=== PATIENT | female | born 1940 | race Caucasian/White ===

== ENCOUNTER 2024-09-22 09:22 | Observation (INO) ==
--- NOTE | 2024-09-22 09:41 | Emergency Department Note ---
HPI - General Adult General Chief complaint: Extremity Injury, Lower Stated complaint: INCREASED PAIN TO KNEE, cough Time Seen by Provider: 09/22/24 09:37 Source: patient, medical record and other Source information: [facility] Mode of arrival: walk-in Limitations: other Limitations comment: CONFUSED AT BASELINE History of Present Illness HPI narrative: 84-year-old female presents to ER for evaluation with complaint of bilateral knee pain and cough with increased fatigue over the last several days. Patient reports her knees have been hurting for several days and that she has had no relief with the medication she has been getting. Patient reports her cough is continuing but is nonproductive in nature. MD complaint: Bilateral knee pain, cough Onset (ago): day(s) Location: Reports left, right and lower extremity (knees) Radiation: Reports non-radiation Severity: moderate Quality: Reports aching, sharp and constant Pain Consistency: Reports constant Relieving factors: Reports immobilization and rest Exacerbating factors: Reports movement and other (Palpation) Associated symptoms: Reports cough, weakness and other (Pain) Treatments prior to arrival: Reports NSAID Related Data Previous Rx's Medication Instructions Recorded ketorolac 10 mg tablet 10 mg PO Q6H PRN pain #20 tabs 08/29/24 Allergies Allergy/AdvReac Type Severity Reaction Status Date / Time No Known Drug Allergies Allergy Verified 09/22/24 09:35 Review of Systems Status of ROS 10 or more systems reviewed and unremark able except as noted in history and below; Negative unobtainable due to endotracheal tube, Negative unobtainable due to medical condition and Negative unobtainable due to mental status Constitutional Reports: fatigue; Denies: fever, chills, change in weight, malaise, night sweats, change in sleep pattern or other Eyes Denies: change in vision, blurry vision, blind spots, light sensitivity, eye discomfort, eye discharge, dry eyes, increased production of tears, floaters, seeing flashes, decreased night vision or other Ears, nose, mouth, and throat Denies: throat pain, neck pain, throat swelling, difficulty swallowing, hoarseness, mouth pain, swelling of lips/tongue, dry mouth, bad breath, ear pain, ear discharge, change in hearing, tinnitus, vertigo, nasal discharge, nasal congestion, nose bleeds, post nasal drip or other Cardiovascular Denies: chest pain, palpitations, edema, swelling of feet/a nkles, lightheadedness, shortness of breath with exertion, shortness of breath when lying down, leg pain with exertion, bluish discoloration of hands/feet or other Respiratory Reports: cough and chest congestion; Denies: shortness of breath, wheezing, stridor, pain on inspiration, change in phlegm color, coughing up blood or other Gastrointestinal Denies: abdominal pain, nausea, vomiting, coffee grounds in vomit, heartburn, diarrhea, constipation, bloating, belching, excessive passing of gas, difficulty swallowing, feeling full early, change in bowel habits, painful bowel movements, rectal pain, rectal swelling, rectal itching, change in stool character, blood in stool, mucus in stool, white/light colored stool, fatty stool or other Genitourinary Denies: painful urination, urinary frequency, urinary urgency, urinary incontinence, blood in urine, difficulty voiding, decreased urine ouput, pelvic pain, painful menstruation, vaginal bleeding, vaginal discharge, irregular period, change in menstrual flow, absence of menstruation, genital lesion, genital itching, vaginal dryness, vaginal odor, pain during intercourse, difficulty conceiving, change in libido or other Musculoskeletal Reports: extremity pain and joint pain (Bilateral knees); Denies: back pain, neck pain, extremity swelling, limited range of motion, joint swelling, muscle cramps, muscle weakness, loss of height or other Integumentary/Breast Denies: rash, itching, redness, skin pain, skin tenderness, skin swelling, sores, new lesion, changing lesion, non-healing lesion, changes in skin color, jaundice, stretch guerrero, acne, nail changes, change in hair, breast pain, breast swelling, nipple discharge, breast mass, breast skin changes, change in breast shape or other Neurological Denies: headache, numbness in extremities, weakness in extremi ties, lack of coordination, dizziness, vertigo, confusion, behavioral changes, slurred speech, difficulty communicating thoughts, seizure-like activity, involuntary movements or other Psychiatric Reports: anxiety; Denies: mood swings, panic attacks, change in sleep pattern, hopelessness, loss of interest, irritability, paranoia, memory loss, difficulty concentrating, visual hallucinations, auditory hallucinations, tactile hallucinations, suicidal ideation, homicidal ideation or other Endocrine Reports: fatigue; Denies: excessive urination, excessive thirst, cold intolerance, excessive sweating, flushing, heat intolerance, deepening of the voice, change in body appearance, change in libido or other Hematologic/Lymphatic Denies: easy bruising, easy bleeding, enlarged lymph nodes or other Allergic/Immunologic Denies: hives, throat swelling, tongue swelling, facial swelling, wheezing, itchy eyes, seasonal allergies, food intolerance or other [facility] Medical History (Updated 09/22/24 @ 09:39 by Gin Calles RN) Abnormal weight loss Adult failure to thrive Dizziness Urinary incontinence Full incontinence of feces Dyspnea Overactive bladder Osteoarthritis Anxiety Depression Insomnia Knee pain Hx of hyperkalemia History of depression HTN (hypertension) Social History Smoking status: unknown if ever smoked Feel stressed/tense/nervous/anxious/difficulty sleeping: not at all Life stressors: other Life stressor details: n/a Due to disability, difficulty making decisions: No Exam Constitutional: normal general appearance, distress noted (moderate), average body habitus, limitations noted (physical limitations) (Dementia) and alert Vital Signs - 24 hr 09/22/24 09:32 Temperature 98.2 F Pulse Rate 98 H Respiratory Rate 24 Blood Pressure 165/69 Pulse Oximetry 97 HENMT: normocephalic, head/scalp atraumatic, hearing grossly normal bilaterall y, external ears normal, EACs normal, nasal mucous membranes normal, external nose normal, oral mucous membranes normal, oropharynx normal and gingiva normal Eyes: PERRL, EOMs intact bilaterally, conjunctivae normal, no scleral icterus, no papilledema, normal visual [place] by confrontation, alignment normal, periorbital findings normal and no nystagmus Neck/C-Spine: visual inspection normal, trachea midline, cervical spine nontender, cervical full ROM noted and supple Lymph: no lymphadenopathy noted and no lymphedema noted Chest: inspection of chest normal, palpation of chest normal, inspection of breast(s) abnormal and palpation of breast(s) abnormal Respiratory: breath sounds equal bilaterally, normal respiratory effort, clear to auscultation bilaterally, no wheezes, no rales, no retractions and no use of accessory muscles Nonproductive cough Cardiovascular: normal heart rate noted, regular rhythm noted, no gallop, no rub, no murmur, no JVD, no clicks and no additional abnormal heart sounds Gastrointestinal: abdomen normal to inspection, abdomen soft to palpation, nontender to palpation, nondistended, normoactive bowel sounds, no hepatosple nomegaly, no masses, no pulsatile mass, no ascites and normal rectal exam (deferred) Genitourinary: no CVA tenderness, bladder normal to palpation, vaginal abnormality noted (deferred), cervical abnormality noted, bimanual exam abnormal and inguinal lymphadenopathy noted Back/Pelvis: spine normal to inspection, no thoracic spine tenderness, no lumbar spine tenderness, thoracic spine ROM normal, lumbar spine ROM normal and no paraspinal muscle tenderness noted Extremities: normal to inspection, normal to palpation, tenderness noted, full ROM, joint enlargement noted and no deformity Patient has bilateral knee pain and joint edema that is chronic in nature. 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, no movement abnormality noted, no focal motor deficit noted, no sensory deficits noted, gait abnormality noted (shuffling) and (wide-based), speech normal, coordination normal, no pronator drift noted, no fasciculations noted and GCS normal Psychiatry: Mental Status Exam documented within this Exam's Psych section mental status grossly normal, orientation abnormal (Patient is oriented to her normal state.), thought process normal, cooperative, affect normal, psychomotor activity normal and memory normal Feel stressed/tense/nervous/anxious/difficulty sleeping: not at all Life stressor details: n/a Skin: skin color normal, no rash, no lesions, no ecchymosis noted, no wounds, no lacerations, skin turgor normal, no jaundice, no petechiae, no mottling, nails normal and no alopecia Course Course Hospital Course: 84-year-old female presented ER from the ED with complaint of bilateral knee pain, cough, weakness and has been evaluated by physical exam, CBC, CMP, urin alysis, plain film chest x-ray, bilateral knee x-rays, EKG, And swabs for flu and COVID results as noted in charting. Patient swabs have returned negative for flu and COVID, patient's lab work reveals patient to be hyponatremic, hypoalbuminemic, leukocytosis, urinary tract infection which has caused the patient to fail outpatient therapy, and acute on chronic kidney injury. Patient will be admitted to the [facility] to observation status for IV antibiotic therapy, electrolyte replacement, and pain control of her knee pain. The expected length of stay of patient is equal to or less than 2 midnights [facility] Vital Signs Vital signs: Vital Signs Temperature 98.2 F 09/22/24 09:32 Pulse Rate 98 H 09/22/24 09:32 Respiratory Rate 24 09/22/24 09:32 Blood Pressure 165/69 09/22/24 09:32 Pulse Oximetry 97 09/22/24 09:32 Temperature 98.2 F 09/22/24 09:32 Pulse Rate 98 H 09/22/24 09:32 Respiratory Rate 24 09/22/24 09:32 Blood Pressure 165/69 09/22/24 09:32 Pulse Oximetry 97 09/22/24 09:32 Medical Decision Making MDM Narrative Medical decision making narrative: Medical Decision Making this patient above physical exam, CBC, CMP, urinalysis, EKG, plain film chest x-ray, bilateral x-rays of the knees, urine culture, and swabs for flu and COVID. Differential Diagnosis Differential Diagnosis: Influenza, COVID, pneumonia, osteoarthritis, gout, degenerative joint disea Medical Records Medical records reviewed: Yes I reviewed the patient's medical records Lab Data Lab results reviewed: Yes I reviewed the patient's lab results Labs: Lab Results 09/22/24 09/22/24 Range/Units 10:21 10:35 WBC 11.2 H (4.3-9.3) K/uL RBC 3.1 L (4.00-5.50) M/uL Hgb 9.4 L (12.5-15.8) gm/dL Hct 28.3 L (35.9-46.7) % MCV 91.5 (81.0-93.7) fl MCH 30.4 (27.6-32.2) pg MCHC 33.3 (33.1-35.3) g/dl RDW 12.6 (11.4-14.2) % Plt Count 321 (152-353) K/uL MPV 7.2 (6.9-10.8) fl Gran % 72.5 H (47.8-71.3) % Lymph % (Auto) 15.1 L (20.0-43.0) % [place] % (Auto) 9.7 (3.6-9.8) % Eos % (Auto) 2.5 (0.4-2.8) % Baso % (Auto) 0.2 (0.1-0.85) Lymph # (Auto) 1.7 (1.1-3.1) [place] # (Auto) 1.1 (1.1-3.1) Eos # (Auto) 0.3 H (0.0-0.2) Baso # (Auto) 0.0 (0.0-0.1) Absolute Gran (auto) 8.1 H (2.3-6.0) Sodium 135 L (136-145) mmol/L Potassium 5.1 (3.6-5.2) mmol/L Chloride 100.0 (98-107) mmol/L Carbon Dioxide 30 (21-32) mmol/L Anion Gap 5.0 (4-14) mEq/L BUN 23 H (7-18) mg/dL Creatinine 1.8 H (0.6-1.3) mg/dL Estimated GFR 27.4 (>59.9) Glucose 92 (70-110) mg/dL Calcium 8.3 L (8.5-10.1) mg/dL Phosphorus 3.5 (2.5-4.9) mg/dL Magnesium 1.9 (1.8-2.4) mg/dL Total Bilirubin 0.24 (0.0-1.0) mg/dL AST 18 (15-37) U/L ALT 12 L (30-65) U/L Alkaline Phosphatase 111 (50-136) U/L Total Protein 6.3 L (6.4-8.2) g/dL Albumin 2.5 L (3.4-5.0) g/dL Urine Color Yellow (STRAW/YELL.) Urine Appearance Hazy (CLEAR) Ur Specific [place] 1.010 (1.001-1.035) Urine Protein Negative (NEGATIVE) Urine Glucose (UA) Normal (NORMAL) Urine Ketones Negative (NEGATIVE) Urine Occult Blood Negative (NEG - TRACE) Urine Nitrite Negative (NEGATIVE) Urine Bilirubin Negative (NEGATIVE) Urine Urobilinogen Normal (NORMAL) Ur Leukocyte Esterase Positive (NEGATIVE) Urine RBC Negative (0 - 5) Urine WBC 5 - 10 ( 0 - 5) Ur Epithelial Cells Rare (Few/HPF) Amorphous Sediment Moderate (Negative) Urine Bacteria Moderate (Negative) Urine Mucus Negative (Negative) Urine Trichomonas Negative (Negative) Urine Yeast Negative (Negative) Fluid pH 8.0 (5 - 9) COVID-19 (JOSE MARIA) Not detected (Not Detectd) Influenza Type A Ag Negative (Negative) Influenza Type B Ag Negative (Negative) Imaging Data Chest x-ray: Radiologist's impression: EXAM: XR CHEST 1V HISTORY: dyspneadyspnea; COMPARISON: None. FINDINGS: The trachea is midline. The cardiac silhouette is slight to moderately enlarged. The lungs are clear without focal infiltrate or effusion. The bony thorax is unremarkable. IMPRESSION: No acute cardiopulmonary disease. THIS IS AN ELECTRONICALLY VERIFIED FINAL REPORT 09/22/2024 10:51 AM - Electronically signed by Robert Garcia MD Left knee x-ray: Attestation: I have reviewed the pertinent imaging results. Radiologist's impression: EXAM: XR KNEE LT 3V HISTORY: painpain; COMPARISON: None. TECHNIQUE: Left knee x-ray series with 3 total views performed FINDINGS: The bone mineral density is generally diminished. An obliquely oriented nondispl aced fracture of the upper fibula diaphysis is observed with bony remodeling. Specifically, there is periosteal reaction and endosteal sclerosis indicating the presence of a healing subacute fracture site. The tibia and distal femur appear grossly intact. There is moderate tricompartmental osteophyte formation of the knee with significant narrowing of the patellofemoral articulation. Small loose bodies are seen within the posterior joint recess. There is no joint effusion. There is radiographic evidence of peripheral atherosclerosis. IMPRESSION: Healing, subacute fracture of the proximal fibular diaphysis. Severely diminished bone mineral density is observed. A stress fracture may be considered in the absence of recent trauma. Tricompartmental DJD of the left knee, locally advanced with respect to the patellofemoral articulation Radiographic evidence of peripheral artery disease. THIS IS AN ELECTRONICALLY VERIFIED FINAL REPORT 09/22/2024 10:50 AM - Electronically signed by Rivas Pickering MD X-ray right knee: Attestation: I have reviewed the pertinent imaging results. Radiologist's impression: EXAM: XR KNEE RT 3V HISTORY: painpain; Unavailable COMPARISON: None FINDINGS: Exam reveals marked non uniform joint space narrowing with diffuse osteophyte formation more pronounced at lateral compartment. A large suprapatellar loose body is seen. Genu valgus deformity is seen with small joint effusion. IMPRESSION: Severe osteoarthritis. THIS IS AN ELECTRONICALLY VERIFIED FINAL REPORT 09/22/2024 10:52 AM - Electronically signed by Robert Garcia MD ECG Data Attestation: I have reviewed the pertinent ECG results. Interpretation: Sinus rhythm rate 95 Normal P axis Inferior Infarct, old RR 636 OK 165 P axis 59 QRS -18 T 22 Discharge Plan Discharge Patient Disposition: Admitted As Observation Condition: Stable Chief Complaint: Extremity Injury, Lower Clinical Impression: Urinary tract infection, Hypoalbuminemia, Hyponatremia, Acute kidney injury superimposed on CKD, Knee joint pain Prescriptions: No Action ketorolac 10 mg tablet 10 mg PO Q6H PRN (Reason: pain) Qty: 20 0RF Rx Instructions: maximum total duration of 5 days from all oral, intranasal, or parenteral formulations Print Language: German Referrals: Mirtha Eng DO [Primary Care Provider] - Time of Disposition: 11:45
[2024-09-22 10:48] LABS: Basophils%(Percent) Auto 0.2 (0.1-0.85); Eosinophils#(Absolute)Auto 0.3 (0.0-0.2); Eosinophils%(Percent) Auto 2.5 % (0.4-2.8); Granulocytes % - Auto 72.5 % (47.8-71.3); Granulocytes#(Absolute)- Auto 8.1 (2.3-6.0); Hematocrit 28.3 % (35.9-46.7); Mean Corpuscular Volume 91.5 fl (81.0-93.7); Monocytes #(Absolute)- Auto 1.1 (1.1-3.1); Monocytes %(Percent)- Auto 9.7 % (3.6-9.8); Platelet Count 321 K/uL (152-353); White Blood Count 11.2 K/uL (4.3-9.3)
[2024-09-22 10:54] LABS: Potassium 5.1 mmol/L (3.6-5.2)
[2024-09-22 11:02] LABS: Urine Appearance HAZY (CLEAR); Urine Color YELLOW (STRAW/YELL.)
[2024-09-22 11:03] LABS: Urine Amorphous Sediment Moderate (Negative); Urine Blood NEGATIVE (NEG - TRACE); Urine Urobilinogen Normal (NORMAL); Urine Yeast Negative (Negative)
[2024-09-22] MEDS ORDERED: bisacodyL 10 MG SUPP.RECT PR PRN (12:03)
[2024-09-22] MEDS ORDERED: ACETAMINOPHEN 1000 MG/100 ML 1,000 MG/100 ML IV.SOLN IV PRN (13:00)
[2024-09-22] MEDS ORDERED: MAGNESIUM, ALUMINUM HYDROXIDE 30 ML ORAL.SUSP PO PRN (13:00)
[2024-09-22] MEDS ORDERED: 0.9 % SODIUM CHLORIDE 1000 ML 1,000 ML IV ONE (13:00)
[2024-09-22] MEDS ORDERED: MORPHINE SULFATE 2 MG/ML CARTRIDGE IV PRN (13:00)
[2024-09-22] MEDS ORDERED: PROMETHAZINE HCL 25 MG in 0.9 % SODIUM CHLORIDE 50 ML IV PRN (13:00)
[2024-09-22] MEDS: MEROPENEM 1 GM VIAL 1 GM in 0.9 % SODIUM CHLORIDE MB+ 50 ML IV SCH (13:01)
[2024-09-22] MEDS ORDERED: MEROPENEM 1 GM VIAL IV ONE (13:01)
[2024-09-22] MEDS ORDERED: 0.9 % SODIUM CHLORIDE MB+ 100 ML IV ONE (13:01)
[2024-09-22] MEDS: 0.9 % SODIUM CHLORIDE 1000 ML 1,000 ML IV SCH (13:01)
[2024-09-22] MEDS: ALBUMIN HUMAN 25% 100 ML IV SCH (14:22)
[2024-09-22] MEDS: ENOXAPARIN SODIUM 30 MG/0.3 ML SYRINGE SUBQ SCH (14:23)
--- NOTE | 2024-09-22 15:37 | History & Physical Report ---
H&P: HPI History of Present Illness Chief complaint: UTI, failed outpatient therapy, acute on chronic k Narrative: 84-year-old female presents to ER for evaluation with complaint of bilateral knee pain and cough with increased fatigue over the last several days. Patient reports her knees have been hurting for several days and that she has had no relief with the medication she has been getting. Patient reports her cough is continuing but is nonproductive in nature. Admitted patient to med/surg for further observation and treatment. Review of Systems Status of ROS 10 or more systems reviewed and unremark able except as noted in history and below; Negative unobtainable due to endotracheal tube, Negative unobtainable due to medical condition and Negative unobtainable due to mental status Constitutional Reports: fatigue; Denies: fever, chills, change in weight, malaise, night sweats, change in sleep pattern or other Eyes Denies: change in vision, blurry vision, blind spots, light sensitivity, eye discomfort, eye discharge, dry eyes, increased production of tears, floaters, seeing flashes, decreased night vision or other Ears, nose, mouth, and throat Denies: throat pain, neck pain, throat swelling, difficulty swallowing, hoarseness, mouth pain, swelling of lips/tongue, dry mouth, bad breath, ear pain, ear discharge, change in hearing, tinnitus, vertigo, nasal discharge, nasal congestion, nose bleeds, post nasal drip or other Cardiovascular Denies: chest pain, palpitations, edema, swelling of feet/ ankles, lightheadedness, shortness of breath with exertion, shortness of breath when lying down, leg pain with exertion, bluish discoloration of hands/feet or other Respiratory Reports: cough and chest congestion; Denies: shortness of breath, wheezing, stridor, pain on inspiration, change in phlegm color, coughing up blood or other Gastrointestinal Denies: abdominal pain, nausea, vomiting, coffee grounds in vomit, heartburn, diarrhea, constipation, bloating, belching, excessive passing of gas, difficulty swallowing, feeling full early, change in bowel habits, painful bowel movements, rectal pain, rectal swelling, rectal itching, change in stool character, blood in stool, mucus in stool, white/light colored stool, fatty stool or other Genitourinary Denies: painful urination, urinary frequency, urinary urgency, urinary incontinence, blood in urine, difficulty voiding, decreased urine ouput, pelvic pain, painful menstruation, vaginal bleeding, vaginal discharge, irregular period, change in menstrual flow, absence of menstruation, genital lesion, genital itching, vaginal dryness, vaginal odor, pain during intercourse, difficulty conceiving, change in libido or other Musculoskeletal Reports: extremity pain and joint pain (Bilateral knees); Denies: back pain, neck pain, extremity swelling, limited range of motion, joint swelling, muscle cramps, muscle weakness, loss of height or other Integumentary/Breast Denies: rash, itching, redness, skin pain, skin tenderness, skin swelling, sores, new lesion, changing lesion, non-healing lesion, changes in skin color, jaundice, stretch guerrero, acne, nail changes, change in hair, breast pain, breast swelling, nipple discharge, breast mass, breast skin changes, change in breast shape or other Neurological Denies: headache, numbness in extremities, weakness in extrem ities, lack of coordination, dizziness, vertigo, confusion, behavioral changes, slurred speech, difficulty communicating thoughts, seizure-like activity, involuntary movements or other Psychiatric Reports: anxiety; Denies: mood swings, panic attacks, change in sleep pattern, hopelessness, loss of interest, irritability, paranoia, memory loss, difficulty concentrating, visual hallucinations, auditory hallucinations, tactile hallucinations, suicidal ideation, homicidal ideation or other Endocrine Reports: fatigue; Denies: excessive urination, excessive thirst, cold intolerance, excessive sweating, flushing, heat intolerance, deepening of the voice, change in body appearance, change in libido or other Hematologic/Lymphatic Denies: easy bruising, easy bleeding, enlarged lymph nodes or other Allergic/Immunologic Denies: hives, throat swelling, tongue swelling, facial swelling, wheezing, itchy eyes, seasonal allergies, food intolerance or other [facility] Medical History (Updated 09/22/24 @ 16:12 by Mirtha Eng DO) UTI (urinary tract infection) Acute kidney injury superimposed on stage 4 chronic kidney disease Anemia Abnormal weight loss Adult failure to thrive Dizziness Urinary incontinence Full incontinence of feces Dyspnea Overactive bladder Osteoarthritis Anxiety Depression Insomnia Knee pain Hx of hyperkalemia History of depression HTN (hypertension) Social History Smoking status: unknown if ever smoked Highest level of school completed/degree received: high school Feel stressed/tense/nervous/anxious/difficulty sleeping: not at all Life stressors: other Life stressor details: n/a Due to disability, difficulty making decisions: No Gender Identity: female Meds Home Medications and Allergies Home Medications Medication Instructions Recorded Confirmed Type acetaminophen 650 mg 650 mg PO Q8H PRN pain 09/22/24 09/22/24 History tablet,extended release buspirone 5 mg tablet 5 mg PO TID 09/22/24 09/22/24 History cholecalciferol (vitamin D3) 125 125 mcg PO DAILY 09/22/24 09/22/24 History mcg (5,000 unit) tablet citalopram 20 mg tablet 20 mg PO BID 09/22/24 09/22/24 History loperamide 2 mg tablet 2 mg PO Q12H PRN loose stool 09/22/24 09/22/24 History loratadine 10 mg tablet 10 mg PO DAILY 09/22/24 09/22/24 History magnesium 200 mg tablet 200 mg PO DAILY 09/22/24 09/22/24 History meclizine 25 mg tablet 25 mg PO Q8H PRN vertigo 09/22/24 09/22/24 History olmesartan 20 mg tablet 40 mg PO BEDTIME 09/22/24 09/22/24 History sodium polystyrene sulfonate 15 30 ml PO DAILY 09/22/24 09/22/24 History gram-sorbitol 20 gram/60 mL oral susp (SPS (with sorbitol)) Allergies Allergy/AdvReac Type Severity Reaction Status Date / Time No Known Drug Allergies Allergy Verified 09/22/24 15:07 Exam Constitutional: abnormal general appearance (disheveled), (chronically ill) and (frail appearing), distress noted (moderate), average body habitus, limitations noted (physical limitations) (Dementia) and alert Vital Signs - 24 hr 09/22/24 09:32 09/22/24 12:03 09/22/24 13:30 Temperature 98.2 F 97.5 F L 98.2 F Pulse Rate 98 H 89 Pulse Rate [Left] 101 H Respiratory Rate 24 22 24 Blood Pressure 165/69 165/69 Blood Pressure [Le ft Radial Artery] 145/63 Pulse Oximetry 97 96 97 Oxygen Delivery Me thod Room Air 09/22/24 14:17 09/22/24 14:17 Temperature 97.5 F L Pulse Rate Pulse Rate [Left] 101 H 101 H Respiratory Rate 22 Blood Pressure Blood Pressure [Le ft Radial Artery] 145/63 Pulse Oximetry 96 Oxygen Delivery Me thod Room Air Room Air HENMT: normocephalic, head/scalp atraumatic, hearing grossly abnormal, external ears normal, EACs normal, TMs abnormal, nasal mucous membranes abnormal, external nose normal, oral mucous membranes normal, oropharynx normal and gingiva normal Eyes: PERRL, EOMs intact bilaterally, conjunctivae normal, no scleral icterus, no papilledema, normal visual [place] by confrontation, alignment normal, periorbital findings normal and no nystagmus Neck/C-Spine: trachea midline, cervical spine nontender, abnormal cervical ROM noted, supple, no meningeal signs, thyroid normal and no carotid bruits Lymph: no lymphadenopathy noted and no lymphedema noted Chest: inspection of chest normal and palpation of chest normal Respiratory: breath sounds equal bilaterally, normal respiratory effort, clear to auscultation bilaterally, no wheezes, no rales, no retractions and no use of accessory muscles Nonproductive cough Cardiovascular: heart rate abnormal (tachycardic), regular rhythm noted, no gallop, no rub, no murmur, no JVD, no clicks, peripheral pulses as noted:, no bruits noted and no additional abnormal heart sounds Gastrointestinal: abdomen normal to inspection, abdomen soft to palpation, nontender to palpation, nondistended, normoactive bowel sounds, hepatosplenomegaly noted, no masses, no pulsatile mass, no ascites and normal rectal exam (deferred) Genitourinary: no CVA tenderness and bladder normal to palpation Back/Pelvis: no thoracic spine tenderness, no lumbar spine tenderness, thoracic spine ROM abnormal, lumbar spine ROM abnormal, no paraspinal muscle tenderness noted and straight leg raise abnormal Extremities: normal to inspection, normal to palpation, tenderness noted, abnormal ROM noted, joint enlargement noted and no deformity Patient has bilateral knee pain and joint edema that is chronic in nature. 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, no movement abnormality noted, no focal motor deficit noted, sensory deficit noted, gait abnormality noted (shuffling) and (wide-based), speech abnormality noted, coordination normal, no pronator drift noted, no fasciculations noted and GCS normal Psychiatry: Mental Status Exam documented within this Exam's Psych section mental status grossly normal, orientation abnormal (Patient is oriented to her normal state.), thought process abnormality noted, cooperative, affect abnormality noted (depressed), psychomotor activity normal and memory abnormal Skin: skin color abnormal Reports (pale), no rash, no lesions, no ecchymosis noted, no wounds, no lacerations, skin turgor abnormal Reports (tenting), no jaundice, no petechiae, no mottling, nails abnormality noted and no alopecia Assessment and Plan Assessment and Plan (1) UTI (urinary tract infection): Qualifiers: Urinary tract infection type: site unspecified Hematuria presence: without hematuria Qualified Code(s): N39.0 - Urinary tract infection, site not specified Code(s): N39.0 - Urinary tract infection, site not specified (2) Hyponatremia: Code(s): E87.1 - Hypo-osmolality and hyponatremia (3) Acute kidney injury superimposed on stage 4 chronic kidney disease: Code(s): N17.9 - Acute kidney failure, unspecified; N18.4 - Chronic kidney disease, stage 4 (severe) (4) Knee pain: Qualifiers: Chronicity: acute Laterality: bilateral Qualified Code(s): M25.561 - Pain in right knee; M25.562 - Pain in left knee Code(s): M25.569 - Pain in unspecified knee (5) Dyspnea: Qualifiers: Dyspnea type: unspecified Qualified Code(s): R06.00 - Dyspnea, unspecified Code(s): R06.00 - Dyspnea, unspecified (6) Dizziness: Code(s): R42 - Dizziness and giddiness (7) Contusion, hip: Qualifiers: Encounter type: initial encounter Laterality: unspecified laterality Qualified Code(s): S70.00XA - Contusion of unspecified hip, initial encounter Code(s): S70.00XA - Contusion of unspecified hip, initial encounter (8) Urinary incontinence: Qualifiers: Urinary Incontinence type: unspecified incontinence Qualified Code(s): R32 - Unspecified urinary incontinence Code(s): R32 - Unspecified urinary incontinence (9) Full incontinence of feces: Code(s): R15.9 - Full incontinence of feces (10) Overactive bladder: Code(s): N32.81 - Overactive bladder (11) Osteoarthritis: Qualifiers: Osteoarthritis location: unspecified site Osteoarthritis type: unspecified Qualified Code(s): M19.90 - Unspecified osteoarthritis, unspecified site Code(s): M19.90 - Unspecified osteoarthritis, unspecified site (12) Anxiety: Code(s): F41.9 - Anxiety disorder, unspecified (13) Insomnia: Qualifiers: Insomnia type: unspecified Qualified Code(s): G47.00 - Insomnia, unspecified Code(s): G47.00 - Insomnia, unspecified (14) HTN (hypertension): Qualifiers: Hypertension type: primary hypertension Qualified Code(s): I10 - Essential (primary) hypertension Code(s): I10 - Essential (primary) hypertension (15) Hx of hyperkalemia: Code(s): Z86.39 - Personal history of other endocrine, nutritional and metabolic disease (16) History of depression: Code(s): Z86.59 - Personal history of other mental and behavioral disorders (17) Anemia: Qualifiers: Anemia type: due to chronic kidney disease Chronic kidney disease stage: stage 4 (GFR 15-29) Qualified Code(s): N18.4 - Chronic kidney disease, stage 4 (severe); D63.1 - Anemia in chronic kidney disease Code(s): D64.9 - Anemia, unspecified (18) Dehydration: Code(s): E86.0 - Dehydration (19) Depression: Qualifiers: Depression Type: other depression Qualified Code(s): F32.89 - Other specified depressive episodes Code(s): F32.A - Depression, unspecified (20) Failure of outpatient treatment: Code(s): Z78.9 - Other specified health status (21) Sinus tachycardia: Code(s): R00.0 - Tachycardia, unspecified Plan Sodium Chloride 1,000 mls @ 75 mls/hr IV CONT cardiac monitoring PT/OT consult Albumin 100 mls @ 60 mls/hr IV Q2H Enoxaparin Sodium 30 mg SUBQ Q24H Meropenem 1 gm in Sodium Chloride 50 mls @ 100 mls/hr IV Q12H Magnesium Hydroxide 30 ml PO DAILY PRN Bisacodyl [address] DAILY PRN Morphine Sulfate 2 mg IV Q4H PRN Ketorolac Tromethamine 15 mg IVP Q6H PRN Ondansetron Hcl 4 mg INJ Q6H PRN Promethazine Hcl 25 mg in Sodium Chloride 51 mls @ 200 mls/hr IV Q8H PRN acetaminophen 1,000 mg in 100 mls @ 400 mls/hr IV Q6H PRN have a pharamcy review of recent antibiotics and cultures to help ensure best antibiotic regimen Results Labs Labs: CBC WBC 11.2 K/uL (4.3-9.3) H 09/22/24 10:35 RBC 3.1 M/uL (4.00-5.50) L 09/22/24 10:35 Hgb 9.4 gm/dL (12.5-15.8) L 09/22/24 10:35 Hct 28.3 % (35.9-46.7) L 09/22/24 10:35 MCV 91.5 fl (81.0-93.7) 09/22/24 10:35 MCH 30.4 pg (27.6-32.2) 09/22/24 10:35 MCHC 33.3 g/dl (33.1-35.3) 09/22/24 10:35 RDW 12.6 % (11.4-14.2) 09/22/24 10:35 Plt Count 321 K/uL (152-353) 09/22/24 10:35 MPV 7.2 fl (6.9-10.8) 09/22/24 10:35 Gran % 72.5 % (47.8-71.3) H 09/22/24 10:35 Lymph % (Auto) 15.1 % (20.0-43.0) L 09/22/24 10:35 [place] % (Auto) 9.7 % (3.6-9.8) 09/22/24 10:35 Eos % (Auto) 2.5 % (0.4-2.8) 09/22/24 10:35 Baso % (Auto) 0.2 (0.1-0.85) 09/22/24 10:35 Lymph # (Auto) 1.7 (1.1-3.1) 09/22/24 10:35 [place] # (Auto) 1.1 (1.1-3.1) 09/22/24 10:35 Eos # (Auto) 0.3 (0.0-0.2) H 09/22/24 10:35 Baso # (Auto) 0.0 (0.0-0.1) 09/22/24 10:35 Absolute Gran (auto) 8.1 (2.3-6.0) H 09/22/24 10:35 BMP Sodium 135 mmol/L (136-145) L 09/22/24 10:35 Potassium 5.1 mmol/L (3.6-5.2) 09/22/24 10:35 Chloride 100.0 mmol/L (98-107) 09/22/24 10:35 Carbon Dioxide 30 mmol/L (21-32) 09/22/24 10:35 Anion Gap 5.0 mEq/L (4-14) 09/22/24 10:35 BUN 23 mg/dL (7-18) H 09/22/24 10:35 Creatinine 1.8 mg/dL (0.6-1.3) H 09/22/24 10:35 Estimated GFR 27.4 (>59.9) 09/22/24 10:35 Glucose 92 mg/dL (70-110) 09/22/24 10:35 Calcium 8.3 mg/dL (8.5-10.1) L 09/22/24 10:35 Phosphorus 3.5 mg/dL (2.5-4.9) 09/22/24 10:35 Magnesium 1.9 mg/dL (1.8-2.4) 09/22/24 10:35 Total Bilirubin 0.24 mg/dL (0.0-1.0) 09/22/24 10:35 AST 18 U/L (15-37) 09/22/24 10:35 ALT 12 U/L (30-65) L 09/22/24 10:35 Alkaline Phosphatase 111 U/L (50-136) 09/22/24 10:35 Total Protein 6.3 g/dL (6.4-8.2) L 09/22/24 10:35 Albumin 2.5 g/dL (3.4-5.0) L 09/22/24 10:35 Liver Function Total Bilirubin 0.24 mg/dL (0.0-1.0) 09/22/24 10:35 AST 18 U/L (15-37) 09/22/24 10:35 ALT 12 U/L (30-65) L 09/22/24 10:35 Alkaline Phosphatase 111 U/L (50-136) 09/22/24 10:35 Total Protein 6.3 g/dL (6.4-8.2) L 09/22/24 10:35 Albumin 2.5 g/dL (3.4-5.0) L 09/22/24 10:35 Urine Urine Color Yellow (STRAW/YELL.) 09/22/24 10:35 Urine Appearance Hazy (CLEAR) 09/22/24 10:35 Ur Specific [place] 1.010 (1.001-1.035) 09/22/24 10:35 Urine Protein Negative (NEGATIVE) 09/22/24 10:35 Urine Glucose (UA) Normal (NORMAL) 09/22/24 10:35 Urine Ketones Negative (NEGATIVE) 09/22/24 10:35 Urine Occult Blood Negative (NEG - TRACE) 09/22/24 10:35 Urine Nitrite Negative (NEGATIVE) 09/22/24 10:35 Urine Bilirubin Negative (NEGATIVE) 09/22/24 10:35 Urine Urobilinogen Normal (NORMAL) 09/22/24 10:35 Ur Leukocyte Esterase Positive (NEGATIVE) 09/22/24 10:35 Imaging Imaging ordered: Chest x-ray and other (Knee X-Ray; Knee X-Ray) Radiologist's impression: XR CHEST 1V Date of Service: 09/22/24 HISTORY: dyspnea; COMPARISON: None. FINDINGS: The trachea is midline. The cardiac silhouette is slight to moderately enlarged. The lungs are clear without focal infiltrate or effusion. The bony thorax is unremarkable. IMPRESSION: No acute cardiopulmonary disease. XR KNEE RT 3V Date of Service: 09/22/24 HISTORY: pain; Unavailable COMPARISON: None FINDINGS: Exam reveals marked non uniform joint space narrowing with diffuse osteophyte formation more pronounced at lateral compartment. A large suprapatellar loose body is seen. Genu valgus deformity is seen with small joint effusion. IMPRESSION: Severe osteoarthritis. XR KNEE LT 3V Date of Service: 09/22/24 HISTORY: pain; COMPARISON: None. TECHNIQUE: Left knee x-ray series with 3 total views performed FINDINGS: The bone mineral density is generally diminished. An obliquely oriented nondisplaced fracture of the upper fibula diaphysis is observed with bony remodeling. Specifically, there is periosteal reaction and endosteal sclerosis indicating the presence of a healing subacute fracture site. The tibia and distal femur appear grossly intact. There is moderate tricompart mental osteophyte formation of the knee with significant narrowing of the patellofemoral articulation. Small loose bodies are seen within the posterior joint recess. There is no joint effusion. There is radiographic evidence of peripheral atherosclerosis. IMPRESSION: Healing, subacute fracture of the proximal fibular diaphysis. Severely diminished bone mineral density is observed. A stress fracture may be considered in the absence of recent trauma. Tricompartmental DJD of the left knee, locally advanced with respect to the patellofemoral articulation Radiographic evidence of peripheral artery disease.
[2024-09-22] MEDS: PANTOPRAZOLE SODIUM 40 MG TABLET.DR PO SCH (16:43)
[2024-09-22] MEDS: L. ACIDOPHILUS/L.BULGARICU 1 GM GRAN.PACK PO SCH (16:43)
[2024-09-22] MEDS ORDERED: ACETAMINOPHEN 325 MG TABLET PO PRN (17:00)
[2024-09-22] MEDS ORDERED: MECLIZINE HCL 25 MG TABLET PO PRN (17:00)
[2024-09-22] MEDS: BUSPIRONE HCL 5 MG TABLET PO SCH (21:39)
[2024-09-22] MEDS: CITALOPRAM HYDROBROMIDE 20 MG TABLET PO SCH (21:39)
[2024-09-23] MEDS: ONDANSETRON HCL/PF 4 MG/2 ML VIAL INJ PRN (01:35)
[2024-09-23 05:23] LABS: Basophils%(Percent) Auto 0.3 (0.1-0.85); Eosinophils#(Absolute)Auto 0.4 (0.0-0.2); Eosinophils%(Percent) Auto 3.9 % (0.4-2.8); Granulocytes % - Auto 67.6 % (47.8-71.3); Granulocytes#(Absolute)- Auto 6.4 (2.3-6.0); Hematocrit 26.2 % (35.9-46.7); Mean Corpuscular Volume 91.4 fl (81.0-93.7); Monocytes #(Absolute)- Auto 0.8 (1.1-3.1); Monocytes %(Percent)- Auto 8.9 % (3.6-9.8); Platelet Count 321 K/uL (152-353); White Blood Count 9.5 K/uL (4.3-9.3)
[2024-09-23] MEDS: LORATADINE 10 MG TABLET PO SCH (08:18)
[2024-09-23] MEDS: SODIUM POLYSTYRENE SULFONATE 15 GM/60 ML ORAL.SUSP PO SCH (13:08)
--- NOTE | 2024-09-23 15:05 | Progress Note ---
Progress Note: Subjective Subjective Interval history: Day two of hospital stay, patient alert and oriented today. Morning daily lab work reflects the following: Anemia with a Hgb of 8.8, elevated BUN of 19, elevated Creatinine of 1.6, low ALT of 12, elevated BNP of 233, and hypoalbuminemia of 3.1. Electrolytes will continue to be replenished and patient will continue to be monitored at this time. Exam Constitutional: abnormal general appearance (disheveled), (chronically ill) and (frail appearing), distress noted (moderate), average body habitus, limitations noted (physical limitations) (Dementia) and alert Vital Signs - 24 hr 09/22/24 20:00 09/22/24 23:53 09/23/24 03:29 Temperature 99.1 F 99.1 F 99.3 F Pulse Rate [Left] 108 H 109 H 108 H Respiratory Rate 17 16 19 Blood Pressure [Le ft Radial Artery] 145/55 134/59 132/53 Pulse Oximetry 96 95 93 L Oxygen Delivery Me thod Room Air Room Air Room Air 09/23/24 08:00 09/23/24 12:00 Temperature 97.7 F 98.3 F Pulse Rate [Left] 113 H 103 H Respiratory Rate 19 19 Blood Pressure [Le ft Radial Artery] 151/61 138/55 Pulse Oximetry 93 L 95 Oxygen Delivery Vt thod Room Air Room Air HENMT: normocephalic, head/scalp atraumatic, hearing grossly abnormal, external ears normal, EACs normal, TMs abnormal, nasal mucous membranes abnormal, external nose normal, oral mucous membranes normal, oropharynx normal and gingiva normal Eyes: PERRL, EOMs intact bilaterally, conjunctivae normal, no scleral icterus, no papilledema, normal visual [place] by confrontation, alignment normal, periorbital findings normal and no nystagmus Neck/C-Spine: visual inspection normal, trachea midline, cervical spine nontender, abnormal cervical ROM noted, supple, no meningeal signs, thyroid normal and no carotid bruits Lymph: no lymphadenopathy noted and no lymphedema noted Chest: inspection of chest normal, palpation of chest normal, inspection of breast(s) abnormal and palpation of breast(s) abnormal Respiratory: breath sounds equal bilaterally, normal respiratory effort, clear to auscultation bilaterally, no wheezes, no rales, no retractions and no use of accessory muscles Nonproductive cough Cardiovascular: heart rate abnormal (tachycardic), regular rhythm noted, no gallop, no rub, no murmur, no JVD, no clicks, peripheral pulses as noted:, no bruits noted and no additional abnormal heart sounds Gastrointestinal: abdomen normal to inspection, abdomen soft to palpation, nontender to palpation, nondistended, normoactive bowel sounds, hepatosplenomegaly noted, no masses, no pulsatile mass, no ascites and normal rectal exam (deferred) Genitourinary: no CVA tenderness, bladder normal to palpation, vaginal abnormality noted (deferred), cervical abnormality noted, bimanual exam abnormal and inguinal lymphadenopathy noted Back/Pelvis: spine normal to inspection, no thoracic spine tenderness, no lumbar spine tenderness, thoracic spine ROM abnormal, lumbar spine ROM abnormal, no paraspinal muscle tenderness noted and straight leg raise abnormal Extremities: normal to inspection, normal to palpation, tenderness noted, abnormal ROM noted, joint enlargement noted and no deformity Patient has bilateral knee pain and joint edema that is chronic in nature. 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, no movement abnormality noted, no focal motor deficit noted, sensory deficit noted, gait abnormality noted (shuffling) and (wide-based), speech abnormality noted, coordination normal, no pronator drift noted, no fasciculations noted and GCS normal Psychiatry: Mental Status Exam documented within this Exam's Psych section mental status grossly normal, orientation abnormal (Patient is oriented to her normal state.), thought process abnormality noted, cooperative, affect abnormality noted (depressed), psychomotor activity normal and memory abnormal Skin: skin color abnormal Reports (pale), no rash, no lesions, no ecchymosis noted, no wounds, no lacerations, skin turgor abnormal Reports (tenting), no jaundice, no petechiae, no mottling, nails abnormality noted and no alopecia Progress Note: Objective Labs Labs: CBC 09/22/24 09/22/24 09/23/24 10:21 10:35 05:25 WBC 11.2 H 9.5 H RBC 3.1 L 2.9 L Hgb 9.4 L 8.8 L Hct 28.3 L 26.2 L MCV 91.5 91.4 MCH 30.4 30.6 MCHC 33.3 33.5 RDW 12.6 12.5 Plt Count 321 321 MPV 7.2 7.0 Gran % 72.5 H 67.6 Lymph % (Auto) 15.1 L 19.3 L [place] % (Auto) 9.7 8.9 Eos % (Auto) 2.5 3.9 H Baso % (Auto) 0.2 0.3 Lymph # (Auto) 1.7 1.8 [place] # (Auto) 1.1 0.8 L Eos # (Auto) 0.3 H 0.4 H Baso # (Auto) 0.0 0.0 Absolute Gran (auto) 8.1 H 6.4 H Sodium 135 L 137 Potassium 5.1 5.0 Chloride 100.0 104.0 Carbon Dioxide 30 26 Anion Gap 5.0 7.0 BUN 23 H 19 H Creatinine 1.8 H 1.6 H Estimated GFR 27.4 31.6 Glucose 92 82 Calcium 8.3 L 8.6 Phosphorus 3.5 3.6 Magnesium 1.9 2.0 Total Bilirubin 0.24 0.29 AST 18 15 ALT 12 L 12 L Alkaline Phosphatase 111 95 B-Natriuretic Peptide 233.0 H Total Protein 6.3 L 6.4 Albumin 2.5 L 3.1 L TSH 1.21 Urine Color Yellow Urine Appearance Hazy Ur Specific [place] 1.010 Urine Protein Negative Urine Glucose (UA) Normal Urine Ketones Negative Urine Occult Blood Negative Urine Nitrite Negative Urine Bilirubin Negative Urine Urobilinogen Normal Ur Leukocyte Esterase Positive Urine RBC Negative Urine WBC 5 - 10 Ur Epithelial Cells Rare Amorphous Sediment Moderate Urine Bacteria Moderate Urine Mucus Negative Urine Trichomonas Negative Urine Yeast Negative Fluid pH 8.0 COVID-19 (JOSE MARIA) Not detected Influenza Type A Ag Negative Influenza Type B Ag Negative [facility] 09/23/24 05:25 WBC 9.5 H RBC 2.9 L Hgb 8.8 L Hct 26.2 L MCV 91.4 MCH 30.6 MCHC 33.5 RDW 12.5 Plt Count 321 MPV 7.0 Gran % 67.6 Lymph % (Auto) 19.3 L [place] % (Auto) 8.9 Eos % (Auto) 3.9 H Baso % (Auto) 0.3 Lymph # (Auto) 1.8 [place] # (Auto) 0.8 L Eos # (Auto) 0.4 H Baso # (Auto) 0.0 Absolute Gran (auto) 6.4 H Sodium 137 Potassium 5.0 Chloride 104.0 Carbon Dioxide 26 Anion Gap 7.0 BUN 19 H Creatinine 1.6 H Estimated GFR 31.6 Glucose 82 Calcium 8.6 Phosphorus 3.6 Magnesium 2.0 Total Bilirubin 0.29 AST 15 ALT 12 L Alkaline Phosphatase 95 B-Natriuretic Peptide 233.0 H Total Protein 6.4 Albumin 3.1 L TSH 1.21 Cardiac Enzymes 09/23/24 05:25 WBC 9.5 H RBC 2.9 L Hgb 8.8 L Hct 26.2 L MCV 91.4 MCH 30.6 MCHC 33.5 RDW 12.5 Plt Count 321 MPV 7.0 Gran % 67.6 Lymph % (Auto) 19.3 L [place] % (Auto) 8.9 Eos % (Auto) 3.9 H Baso % (Auto) 0.3 Lymph # (Auto) 1.8 [place] # (Auto) 0.8 L Eos # (Auto) 0.4 H Baso # (Auto) 0.0 Absolute Gran (auto) 6.4 H Sodium 137 Potassium 5.0 Chloride 104.0 Carbon Dioxide 26 Anion Gap 7.0 BUN 19 H Creatinine 1.6 H Estimated GFR 31.6 Glucose 82 Calcium 8.6 Phosphorus 3.6 Magnesium 2.0 Total Bilirubin 0.29 AST 15 ALT 12 L Alkaline Phosphatase 95 B-Natriuretic Peptide 233.0 H Total Protein 6.4 Albumin 3.1 L TSH 1.21 Liver Function 09/23/24 05:25 WBC 9.5 H RBC 2.9 L Hgb 8.8 L Hct 26.2 L MCV 91.4 MCH 30.6 MCHC 33.5 RDW 12.5 Plt Count 321 MPV 7.0 Gran % 67.6 Lymph % (Auto) 19.3 L [place] % (Auto) 8.9 Eos % (Auto) 3.9 H Baso % (Auto) 0.3 Lymph # (Auto) 1.8 [place] # (Auto) 0.8 L Eos # (Auto) 0.4 H Baso # (Auto) 0.0 Absolute Gran (auto) 6.4 H Sodium 137 Potassium 5.0 Chloride 104.0 Carbon Dioxide 26 Anion Gap 7.0 BUN 19 H Creatinine 1.6 H Estimated GFR 31.6 Glucose 82 Calcium 8.6 Phosphorus 3.6 Magnesium 2.0 Total Bilirubin 0.29 AST 15 ALT 12 L Alkaline Phosphatase 95 B-Natriuretic Peptide 233.0 H Total Protein 6.4 Albumin 3.1 L TSH 1.21 Urine 09/22/24 09/22/24 09/23/24 10:21 10:35 05:25 WBC 11.2 H 9.5 H RBC 3.1 L 2.9 L Hgb 9.4 L 8.8 L Hct 28.3 L 26.2 L MCV 91.5 91.4 MCH 30.4 30.6 MCHC 33.3 33.5 RDW 12.6 12.5 Plt Count 321 321 MPV 7.2 7.0 Gran % 72.5 H 67.6 Lymph % (Auto) 15.1 L 19.3 L [place] % (Auto) 9.7 8.9 Eos % (Auto) 2.5 3.9 H Baso % (Auto) 0.2 0.3 Lymph # (Auto) 1.7 1.8 [place] # (Auto) 1.1 0.8 L Eos # (Auto) 0.3 H 0.4 H Baso # (Auto) 0.0 0.0 Absolute Gran (auto) 8.1 H 6.4 H Sodium 135 L 137 Potassium 5.1 5.0 Chloride 100.0 104.0 Carbon Dioxide 30 26 Anion Gap 5.0 7.0 BUN 23 H 19 H Creatinine 1.8 H 1.6 H Estimated GFR 27.4 31.6 Glucose 92 82 Calcium 8.3 L 8.6 Phosphorus 3.5 3.6 Magnesium 1.9 2.0 Total Bilirubin 0.24 0.29 AST 18 15 ALT 12 L 12 L Alkaline Phosphatase 111 95 B-Natriuretic Peptide 233.0 H Total Protein 6.3 L 6.4 Albumin 2.5 L 3.1 L TSH 1.21 Urine Color Yellow Urine Appearance Hazy Ur Specific [place] 1.010 Urine Protein Negative Urine Glucose (UA) Normal Urine Ketones Negative Urine Occult Blood Negative Urine Nitrite Negative Urine Bilirubin Negative Urine Urobilinogen Normal Ur Leukocyte Esterase Positive Urine RBC Negative Urine WBC 5 - 10 Ur Epithelial Cells Rare Amorphous Sediment Moderate Urine Bacteria Moderate Urine Mucus Negative Urine Trichomonas Negative Urine Yeast Negative Fluid pH 8.0 COVID-19 (JOSE MARIA) Not detected Influenza Type A Ag Negative Influenza Type B Ag Negative Progress Note: A&P Assessment and Plan (1) UTI (urinary tract infection): Qualifiers: Hematuria presence: without hematuria Urinary tract infection type: site unspecified Qualified Code(s): N39.0 - Urinary tract infection, site not specified (2) Sinus tachycardia: (3) Dizziness: (4) Failure of outpatient treatment: (5) Contusion, hip: Qualifiers: Encounter type: initial encounter Laterality: unspecified laterality Qualified Code(s): S70.00XA - Contusion of unspecified hip, initial encounter (6) Hyponatremia: Assessment and Plan: resolved (7) Hx of hyperkalemia: (8) Acute kidney injury superimposed on stage 4 chronic kidney disease: (9) Knee pain: Qualifiers: Chronicity: acute Laterality: bilateral Qualified Code(s): M25.561 - Pain in right knee; M25.562 - Pain in left knee (10) Dyspnea: Qualifiers: Dyspnea type: unspecified Qualified Code(s): R06.00 - Dyspnea, unspecified (11) Urinary incontinence: Qualifiers: Urinary Incontinence type: unspecified incontinence Qualified Code(s): R32 - Unspecified urinary incontinence (12) Full incontinence of feces: (13) Overactive bladder: (14) Osteoarthritis: Qualifiers: Osteoarthritis location: unspecified site Osteoarthritis type: unsp ecified Qualified Code(s): M19.90 - Unspecified osteoarthritis, unspecified site (15) Anxiety: (16) Insomnia: Qualifiers: Insomnia type: unspecified Qualified Code(s): G47.00 - Insomnia, unspecified (17) HTN (hypertension): Qualifiers: Hypertension type: primary hypertension Qualified Code(s): I10 - Essential (primary) hypertension (18) Anemia: Qualifiers: Anemia type: due to chronic kidney disease Chronic kidney disease stage: stage 4 (GFR 15-29) Qualified Code(s): N18.4 - Chronic kidney disease, stage 4 (severe); D63.1 - Anemia in chronic kidney disease (19) Dehydration: (20) Depression: Qualifiers: Depression Type: other depression Qualified Code(s): F32.89 - Other specified depressive episodes (21) History of depression: (22) Falls frequently: (23) Dementia, vascular, mixed: Qualifiers: Dementia behavioral or psychological symptom: with other behavioral disturbance Dementia severity: moderate Qualified Code(s): F01.B18 - Vascular dementia, moderate, with other behavioral disturbance Plan Sodium Chloride 1,000 mls @ 75 mls/hr IV CONT cardiac monitoring PT/OT consult Albumin 100 mls @ 60 mls/hr IV Q2H Enoxaparin Sodium 30 mg SUBQ Q24H Meropenem 1 gm in Sodium Chloride 50 mls @ 100 mls/hr IV Q12H Buspirone Hcl 5 mg PO TID Citalopram Hydrobromide 20 mg PO BID Loratadine 10 mg PO DAILY Sodium Polystyrene Sulfonate 7.5 gm PO DAILY Pantoprazole Sodium 40 mg PO DAILY Lactobacillus Acidophilus 1 gm PO DAILY Magnesium Hydroxide 30 ml PO DAILY PRN Bisacodyl 10 mg AL DAILY PRN Morphine Sulfate 2 mg IV Q4H PRN Ketorolac Tromethamine 15 mg IVP Q6H PRN Ondansetron Hcl 4 mg INJ Q6H PRN Promethazine Hcl 25 mg in Sodium Chloride 51 mls @ 200 mls/hr IV Q8H PRN acetaminophen 1,000 mg in 100 mls @ 400 mls/hr IV Q6H PRN Meclizine Hcl 25 mg PO Q8H PRN have a pharamcy review of recent antibiotics and cultures to help ensure best antibiotic regimen Fall Risk Details Thompson Fall Scale Risk Level: High Fall Risk Current Medications: Current Medications Acetaminophen (Acetaminophen 325 Mg Tablet) 650 mg PO Q8H PRN PRN Reason: MILD PAIN SCALE 1-4 Bisacodyl (Bisacodyl 10 Mg Supp.Rect) 10 mg AL DAILY PRN PRN Reason: Constipation Buspirone HCl (Buspirone Hcl 5 Mg Tablet) 5 mg PO TID [facility] Last Admin: 09/23/24 08:18 Dose: 5 mg Citalopram Hydrobromide (Citalopram Hydrobromide 20 Mg Tablet) 20 mg PO BID [facility] Last Admin: 09/23/24 08:17 Dose: 20 mg Enoxaparin Sodium (Enoxaparin Sodium 30 Mg/0.3 Ml Syringe) 30 mg SUBQ Q24H [facility] Last Admin: 09/23/24 13:08 Dose: 30 mg Sodium Chloride (Sodium Chloride) 1,000 mls @ 100 mls/hr IV CONT [facility] Last Infusion: 09/23/24 02:46 Dose: Infused Promethazine HCl 25 mg/ Sodium (Chloride) 51 mls @ 200 mls/hr IV Q8H PRN PRN Reason: Nausea And Vomiting Acetaminophen (Acetaminophen 1000 Mg/100 Ml) 1,000 mg in 100 mls @ 400 mls/hr IV Q6H PRN PRN Reason: MILD PAIN SCALE 1-4 Meropenem 1 gm/ Sodium (Chloride) 50 mls @ 100 mls/hr IV Q12H [facility] Last Admin: 09/23/24 13:07 Dose: 100 mls/hr Ketorolac Tromethamine (Ketorolac 30 Mg/Ml Inj Vial) 15 mg IVP Q6H PRN PRN Reason: Moderate Pain SCALE 5-7 Stop: 09/27/24 12:59 Lactobacillus Acidophilus (L. Acidophilus/L.Bulgaricu 1 Gm Gran.Pack) 1 gm PO DAILY [facility] Loratadine (Loratadine 10 Mg Tablet) 10 mg PO DAILY [facility] Last Admin: 09/23/24 08:18 Dose: 10 mg Magnesium Hydroxide (Magnesium, Aluminum Hydroxide 30 Ml Oral.Susp) 30 ml PO DAILY PRN PRN Reason: Heartburn Meclizine HCl (Meclizine Hcl 25 Mg Tablet) 25 mg PO Q8H PRN PRN Reason: vertigo Morphine Sulfate (Morphine Sulfate 2 Mg/Ml Cartridge) 2 mg IV Q4H PRN PRN Reason: Severe Pain SCALE 8-10 Ondansetron HCl (Ondansetron Hcl/Pf 4 Mg/2 Ml Vial) 4 mg INJ Q6H PRN PRN Reason: Nausea And Vomiting Last Admin: 09/23/24 01:35 Dose: 4 mg Pantoprazole Sodium (Pantoprazole Sodium 40 Mg Tablet.Dr) 40 mg PO DAILY [facility] Last Admin: 09/23/24 08:18 Dose: 40 mg Sodium Polystyrene Sulfonate (Sodium Polystyrene Sulfonate 15 Gm/60 Ml Oral.Susp) 7.5 gm PO DAILY [facility] Last Admin: 09/23/24 13:08 Dose: 7.5 gm Time Spent With Patient Time: Total time spent is greater than 50% in coordination of care (as documented) at patient's floor/unit and/or counseling patient: Time with patient: greater than 35 minutes
[2024-09-24] MEDS: KETOROLAC 30 MG/ML INJ VIAL IVP PRN (05:36)
[2024-09-24 05:45] LABS: Basophils%(Percent) Auto 0.2 (0.1-0.85); Eosinophils#(Absolute)Auto 0.3 (0.0-0.2); Eosinophils%(Percent) Auto 2.7 % (0.4-2.8); Granulocytes % - Auto 69.6 % (47.8-71.3); Granulocytes#(Absolute)- Auto 7.8 (2.3-6.0); Hematocrit 27.9 % (35.9-46.7); Mean Corpuscular Volume 91.8 fl (81.0-93.7); Monocytes %(Percent)- Auto 9.4 % (3.6-9.8); Platelet Count 322 K/uL (152-353); White Blood Count 11.1 K/uL (4.3-9.3)
[2024-09-24] MEDS: L. ACIDOPHILUS/L.BULGARICU 1 GM GRAN.PACK PO SCH (09:08)
--- NOTE | 2024-09-24 10:20 | Progress Note ---
Progress Note: Subjective Subjective Interval history: Day three of hospital stay, patient alert and oriented today. Just completing breakfast and resting in semi-Fowlers position. She denies any current complaints. Reports she is feeling better. mini shifter nurse reported episodes of loose watery bowel movement with foul odor. Stool cultures ordered. Morning daily lab work reflects the following: Mild leukocytosis of 11.1, Anemia with a Hgb of 9.2And hematocrit 27.9 improved from yesterday., elevated BUN 17 within normal limits, elevated Creatinine of 1.6, Hypomagnesia 1.7, elevated BNP of 233, and hypoalbuminemia of 3.0. Electrolytes will continue to be replenished and patient will continue to be monitored at this time. Exam Constitutional: abnormal general appearance (chronically ill) and (frail appearing), distress noted (moderate), average body habitus, limitations noted (physical limitations) (Dementia) and alert Vital Signs - 24 hr 09/23/24 12:00 09/23/24 16:00 09/23/24 20:00 Temperature 98.3 F 99.0 F 98.1 F Pulse Rate [Left] 103 H 102 H 106 H Respiratory Rate 19 19 18 Blood Pressure [Le ft Radial Artery] 138/55 145/71 147/60 Pulse Oximetry 95 94 L 94 L Oxygen Delivery Ma thod Room Air Room Air Room Air 09/24/24 00:00 09/24/24 03:52 09/24/24 08:00 Temperature 98.3 F 98.9 F 98.4 F Pulse Rate [Left] 98 H 110 H 109 H Respiratory Rate 18 20 22 Blood Pressure [Le ft Radial Artery] 143/58 157/67 177/82 Pulse Oximetry 94 L 91 L 95 [facility] Air HENMT: normocephalic, head/scalp atraumatic, hearing grossly abnormal, external ears normal, EACs normal, nasal mucous membranes normal, external nose normal, oral mucous membranes normal and oropharynx normal Eyes: PERRL, EOMs intact bilaterally, conjunctivae normal, no scleral icterus, alignment normal and periorbital findings normal Neck/C-Spine: visual inspection normal, trachea midline, cervical spine nontender, abnormal cervical ROM noted, supple and no meningeal signs Lymph: no lymphadenopathy noted and no lymphedema noted Chest: inspection of chest normal and palpation of chest normal Respiratory: breath sounds equal bilaterally, normal respiratory effort, clear to auscultation bilaterally, no wheezes, no rales, no retractions and no use of accessory muscles Nonproductive cough Cardiovascular: heart rate abnormal (tachycardic), regular rhythm noted, no gallop, no rub, no murmur, no JVD, no clicks and no additional abnormal heart sounds Gastrointestinal: abdomen normal to inspection, abdomen soft to palpation, nontender to palpation, nondistended, normoactive bowel sounds, no masses, no pulsatile mass and no ascites Genitourinary: no CVA tenderness and bladder normal to palpation Back/Pelvis: spine normal to inspection, no thoracic spine tenderness, no lumbar spine tenderness and no paraspinal muscle tenderness noted Extremities: normal to inspection, normal to palpation, tenderness noted, abnormal ROM noted, joint enlargement noted and no deformity Patient has bilateral knee pain and joint edema that is chronic in nature. Neurology: sweetbread trimmer II-XII intact, no movement abnormality noted, no focal motor deficit noted, sensory deficit noted, gait abnormality noted (shuffling) and (wide-based), speech abnormality noted, coordination normal, no pronator drift noted, no fasciculations noted and GCS normal Psychiatry: Mental Status Exam documented within this Exam's Psych section mental status grossly normal, orientation abnormal (Patient is oriented to her normal state.), thought process abnormality noted, cooperative, affect a bnormality noted (depressed), psychomotor activity normal and memory abnormal Skin: skin color abnormal Reports (pale), no rash, no lesions, no ecchymosis noted, no wounds, no lacerations, skin turgor abnormal Reports (tenting), no jaundice, no petechiae, no mottling, nails abnormality noted and no alopecia Progress Note: Objective Labs Labs: CBC 09/22/24 09/22/24 09/23/24 10:21 10:35 05:25 WBC 11.2 H 9.5 H RBC 3.1 L 2.9 L Hgb 9.4 L 8.8 L Hct 28.3 L 26.2 L MCV 91.5 91.4 MCH 30.4 30.6 MCHC 33.3 33.5 RDW 12.6 12.5 Plt Count 321 321 MPV 7.2 7.0 Gran % 72.5 H 67.6 Lymph % (Auto) 15.1 L 19.3 L [place] % (Auto) 9.7 8.9 Eos % (Auto) 2.5 3.9 H Baso % (Auto) 0.2 0.3 Lymph # (Auto) 1.7 1.8 [place] # (Auto) 1.1 0.8 L Eos # (Auto) 0.3 H 0.4 H Baso # (Auto) 0.0 0.0 Absolute Gran (auto) 8.1 H 6.4 H Sodium 135 L 137 Potassium 5.1 5.0 Chloride 100.0 104.0 Carbon Dioxide 30 26 Anion Gap 5.0 7.0 BUN 23 H 19 H Creatinine 1.8 H 1.6 H Estimated GFR 27.4 31.6 Glucose 92 82 Calcium 8.3 L 8.6 Phosphorus 3.5 3.6 Magnesium 1.9 2.0 Total Bilirubin 0.24 0.29 AST 18 15 ALT 12 L 12 L Alkaline Phosphatase 111 95 B-Natriuretic Peptide 233.0 H Total Protein 6.3 L 6.4 Albumin 2.5 L 3.1 L TSH 1.21 Urine Color Yellow Urine Appearance Hazy Ur Specific Dequincy 1.010 Urine Protein Negative Urine Glucose (UA) Normal Urine Ketones Negative Urine Occult Blood Negative Urine Nitrite Negative Urine Bilirubin Negative Urine Urobilinogen Normal Ur Leukocyte Esterase Positive Urine RBC Negative Urine WBC 5 - 10 Ur Epithelial Cells Rare Amorphous Sediment Moderate Urine Bacteria Moderate Urine Mucus Negative Urine Trichomonas Negative Urine Yeast Negative Fluid pH 8.0 COVID-19 (JOSE MARIA) Not detected Influenza Type A Ag Negative Influenza Type B Ag Negative 09/24/24 05:25 WBC 11.1 H RBC 3.0 L Hgb 9.2 L Hct 27.9 L MCV 91.8 MCH 30.3 MCHC 33.0 L RDW 12.8 Plt Count 322 MPV 7.2 Gran % 69.6 Lymph % (Auto) 18.1 L [place] % (Auto) 9.4 Eos % (Auto) 2.7 Baso % (Auto) 0.2 Lymph # (Auto) 2.0 [place] # (Auto) 1.0 L Eos # (Auto) 0.3 H Baso # (Auto) 0.0 Absolute Gran (auto) 7.8 H Sodium 139 Potassium 5.0 Chloride 107.0 Carbon Dioxide 24 Anion Gap 8.0 BUN 17 Creatinine 1.6 H Estimated GFR 31.6 Glucose 92 Calcium 8.6 Phosphorus 3.0 Magnesium 1.7 L Total Bilirubin 0.25 AST 18 ALT 10 L Alkaline Phosphatase 100 B-Natriuretic Peptide Total Protein 6.4 Albumin 3.0 L TSH Urine Color Urine Appearance Ur Specific Dequincy Urine Protein Urine Glucose (UA) Urine Ketones Urine Occult Blood Urine Nitrite Urine Bilirubin Urine Urobilinogen Ur Leukocyte Esterase Urine RBC Urine WBC Ur Epithelial Cells Amorphous Sediment Urine Bacteria Urine Mucus Urine Trichomonas Urine Yeast Fluid pH COVID-19 (JOSE MARIA) Influenza Type A Ag Influenza Type B Ag BMP 09/24/24 05:25 WBC 11.1 H RBC 3.0 L Hgb 9.2 L Hct 27.9 L MCV 91.8 MCH 30.3 MCHC 33.0 L RDW 12.8 Plt Count 322 MPV 7.2 Gran % 69.6 Lymph % (Auto) 18.1 L [place] % (Auto) 9.4 Eos % (Auto) 2.7 Baso % (Auto) 0.2 Lymph # (Auto) 2.0 [place] # (Auto) 1.0 L Eos # (Auto) 0.3 H Baso # (Auto) 0.0 Absolute Gran (auto) 7.8 H Sodium 139 Potassium 5.0 Chloride 107.0 Carbon Dioxide 24 Anion Gap 8.0 BUN 17 Creatinine 1.6 H Estimated GFR 31.6 Glucose 92 Calcium 8.6 Phosphorus 3.0 Magnesium 1.7 L Total Bilirubin 0.25 AST 18 ALT 10 L Alkaline Phosphatase 100 Total Protein 6.4 Albumin 3.0 L Cardiac Enzymes 09/24/24 05:25 WBC 11.1 H RBC 3.0 L Hgb 9.2 L Hct 27.9 L MCV 91.8 MCH 30.3 MCHC 33.0 L RDW 12.8 Plt Count 322 MPV 7.2 Gran % 69.6 Lymph % (Auto) 18.1 L [place] % (Auto) 9.4 Eos % (Auto) 2.7 Baso % (Auto) 0.2 Lymph # (Auto) 2.0 [place] # (Auto) 1.0 L Eos # (Auto) 0.3 H Baso # (Auto) 0.0 Absolute Gran (auto) 7.8 H Sodium 139 Potassium 5.0 Chloride 107.0 Carbon Dioxide 24 Anion Gap 8.0 BUN 17 Creatinine 1.6 H Estimated GFR 31.6 Glucose 92 Calcium 8.6 Phosphorus 3.0 Magnesium 1.7 L Total Bilirubin 0.25 AST 18 ALT 10 L Alkaline Phosphatase 100 Total Protein 6.4 Albumin 3.0 L Liver Function 09/24/24 05:25 WBC 11.1 H RBC 3.0 L Hgb 9.2 L Hct 27.9 L MCV 91.8 MCH 30.3 MCHC 33.0 L RDW 12.8 Plt Count 322 MPV 7.2 Gran % 69.6 Lymph % (Auto) 18.1 L [place] % (Auto) 9.4 Eos % (Auto) 2.7 Baso % (Auto) 0.2 Lymph # (Auto) 2.0 [place] # (Auto) 1.0 L Eos # (Auto) 0.3 H Baso # (Auto) 0.0 Absolute Gran (auto) 7.8 H Sodium 139 Potassium 5.0 Chloride 107.0 Carbon Dioxide 24 Anion Gap 8.0 BUN 17 Creatinine 1.6 H Estimated GFR 31.6 Glucose 92 Calcium 8.6 Phosphorus 3.0 Magnesium 1.7 L Total Bilirubin 0.25 AST 18 ALT 10 L Alkaline Phosphatase 100 Total Protein 6.4 Albumin 3.0 L Urine 09/22/24 09/22/24 09/23/24 10:21 10:35 05:25 WBC 11.2 H 9.5 H RBC 3.1 L 2.9 L Hgb 9.4 L 8.8 L Hct 28.3 L 26.2 L MCV 91.5 91.4 MCH 30.4 30.6 MCHC 33.3 33.5 RDW 12.6 12.5 Plt Count 321 321 MPV 7.2 7.0 Gran % 72.5 H 67.6 Lymph % (Auto) 15.1 L 19.3 L [place] % (Auto) 9.7 8.9 Eos % (Auto) 2.5 3.9 H Baso % (Auto) 0.2 0.3 Lymph # (Auto) 1.7 1.8 [place] # (Auto) 1.1 0.8 L Eos # (Auto) 0.3 H 0.4 H Baso # (Auto) 0.0 0.0 Absolute Gran (auto) 8.1 H 6.4 H Sodium 135 L 137 Potassium 5.1 5.0 Chloride 100.0 104.0 Carbon Dioxide 30 26 Anion Gap 5.0 7.0 BUN 23 H 19 H Creatinine 1.8 H 1.6 H Estimated GFR 27.4 31.6 Glucose 92 82 Calcium 8.3 L 8.6 Phosphorus 3.5 3.6 Magnesium 1.9 2.0 Total Bilirubin 0.24 0.29 AST 18 15 ALT 12 L 12 L Alkaline Phosphatase 111 95 B-Natriuretic Peptide 233.0 H Total Protein 6.3 L 6.4 Albumin 2.5 L 3.1 L TSH 1.21 Urine Color Yellow Urine Appearance Hazy Ur Specific Dequincy 1.010 Urine Protein Negative Urine Glucose (UA) Normal Urine Ketones Negative Urine Occult Blood Negative Urine Nitrite Negative Urine Bilirubin Negative Urine Urobilinogen Normal Ur Leukocyte Esterase Positive Urine RBC Negative Urine WBC 5 - 10 Ur Epithelial Cells Rare Amorphous Sediment Moderate Urine Bacteria Moderate Urine Mucus Negative Urine Trichomonas Negative Urine Yeast Negative Fluid pH 8.0 COVID-19 (JOSE MARIA) Not detected Influenza Type A Ag Negative Influenza Type B Ag Negative 09/24/24 05:25 WBC 11.1 H RBC 3.0 L Hgb 9.2 L Hct 27.9 L MCV 91.8 MCH 30.3 MCHC 33.0 L RDW 12.8 Plt Count 322 MPV 7.2 Gran % 69.6 Lymph % (Auto) 18.1 L [place] % (Auto) 9.4 Eos % (Auto) 2.7 Baso % (Auto) 0.2 Lymph # (Auto) 2.0 [place] # (Auto) 1.0 L Eos # (Auto) 0.3 H Baso # (Auto) 0.0 Absolute Gran (auto) 7.8 H Sodium 139 Potassium 5.0 Chloride 107.0 Carbon Dioxide 24 Anion Gap 8.0 BUN 17 Creatinine 1.6 H Estimated GFR 31.6 Glucose 92 Calcium 8.6 Phosphorus 3.0 Magnesium 1.7 L Total Bilirubin 0.25 AST 18 ALT 10 L Alkaline Phosphatase 100 B-Natriuretic Peptide Total Protein 6.4 Albumin 3.0 L TSH Urine Color Urine Appearance Ur Specific Dequincy Urine Protein Urine Glucose (UA) Urine Ketones Urine Occult Blood Urine Nitrite Urine Bilirubin Urine Urobilinogen Ur Leukocyte Esterase Urine RBC Urine WBC Ur Epithelial Cells Amorphous Sediment Urine Bacteria Urine Mucus Urine Trichomonas Urine Yeast Fluid pH COVID-19 (JOSE MARIA) Influenza Type A Ag Influenza Type B Ag Pulse Oximetry SpO2 results: 95% RA Attestation: I have reviewed the pertinent pulse oximetry results. Progress Note: A&P Assessment and Plan (1) UTI (urinary tract infection): Assessment and Plan: Meropenem 1 g IV every 12 Continue with IV hydration Continue with electrolyte replacement as needed per protocol Urine culture-no growth day 2 Qualifiers: Hematuria presence: without hematuria Urinary tract infection type: site unspecified Qualified Code(s): N39.0 - Urinary tract infection, site not specified (2) Hyponatremia: Assessment and Plan: Continue with IV hydration. Continue with electrolyte replacement as needed per protocol Continue with daily CBC, CMP, mag Vital signs per protocol (3) Acute kidney injury superimposed on stage 4 chronic kidney disease: Assessment and Plan: Continue with IV hydration. Continue with electrolyte replacement as needed per protocol Continue with daily CBC, CMP, mag Vital signs per protocol Monitor intake and output. (4) Knee pain: Assessment and Plan: Continue with range of motion and activity as tolerated. Imaging reveals severe osseous arthritis of right knee X-ray of left knee reveals:Healing, subacute fracture of the proximal fibular diaphysis. Severely diminished bone mineral density is observed. A stress fracture may be considered in the absence of recent trauma.Tricompartmental DJD of the left knee, locally advanced with respect to the patellofemoral articulation Radiographic evidence of peripheral artery disease PT/OT eval and treat Qualifiers: Chronicity: acute Laterality: bilateral Qualified Code(s): M25.561 - Pain in right knee; M25.562 - Pain in left knee (5) Dyspnea: Assessment and Plan: Improved. Vital signs per protocol. Airway suctioning as needed Oxygen as needed to maintain sats greater than 92% Chest x-ray-No acute cardiopulmonary disease. Qualifiers: Dyspnea type: unspecified Qualified Code(s): R06.00 - Dyspnea, unspecified (6) Dizziness: Assessment and Plan: Improved. Continue with IV hydration. Continue with electrolyte replacement as needed per protocol Continue with daily CBC, CMP, mag Vital signs per protocol Monitor intake and output. Up with assistance only and continue range of motion and activity as tolerated. PT/OT eval and treat (7) Contusion, hip: Assessment and Plan: Up with assistance only and continue range of motion and activity as tolerated. X-ray hip and pelvis-no acute bony process Qualifiers: Encounter type: initial encounter Laterality: unspecified laterality Qualified Code(s): S70.00XA - Contusion of unspecified hip, initial encounter (8) Urinary incontinence: Assessment and Plan: Continue with IV hydration. Continue with electrolyte replacement as needed per protocol Continue with daily CBC, CMP, mag Vital signs per protocol Monitor intake and output. Qualifiers: Urinary Incontinence type: unspecified incontinence Qualified Code(s): R32 - Unspecified urinary incontinence (9) Full incontinence of feces: Assessment and Plan: Continue with IV hydration. Continue with electrolyte replacement as needed per protocol Continue with daily CBC, CMP, mag Vital signs per protocol Monitor intake and output. (10) Overactive bladder: Assessment and Plan: Continue with home medications as directed Continue with IV hydration. Continue with electrolyte replacement as needed per protocol Continue with daily CBC, CMP, mag Vital signs per protocol Monitor intake and output. (11) Osteoarthritis: Assessment and Plan: Morphine 2 mg IV every 4 as needed Acetaminophen 1000 mg in 100 cc every 6 as needed Ketorolac 15 mg IV every 6 as needed PT/OT eval and treat Qualifiers: Osteoarthritis location: unspecified site Osteoarthritis type: unspecified Qualified Code(s): M19.90 - Unspecified osteoarthritis, unspecified site (12) Anxiety: Assessment and Plan: Continue with home medications as directed. Report any new or worsening symptoms. Adding Ativan 0.5 mg IVP every 8 hours as needed for anxiety (13) Insomnia: Assessment and Plan: Continue with home medications as directed. Report any new or worsening symptoms Qualifiers: Insomnia type: unspecified Qualified Code(s): G47.00 - Insomnia, unspecified (14) HTN (hypertension): Assessment and Plan: Vital signs per protocol Continue with home medications as directed. Qualifiers: Hypertension type: primary hypertension Qualified Code(s): I10 - Essential (primary) hypertension (15) Hx of hyperkalemia: Assessment and Plan: Continue with home medications as directed Continue with IV hydration. Continue with electrolyte replacement as needed per protocol Continue with daily CBC, CMP, mag Vital signs per protocol Monitor intake and output. (16) Anemia: Assessment and Plan: Continue with home medications as directed Continue with IV hydration. Continue with electrolyte replacement as needed per protocol Continue with daily CBC, CMP, mag Vital signs per protocol Monitor intake and output. Qualifiers: Anemia type: due to chronic kidney disease Chronic kidney disease stage: stage 4 (GFR 15-29) Qualified Code(s): N18.4 - Chronic kidney disease, stage 4 (severe); D63.1 - Anemia in chronic kidney disease (17) Dehydration: Assessment and Plan: Continue with home medications as directed Continue with IV hydration. Continue with electrolyte replacement as needed per protocol Continue with daily CBC, CMP, mag Vital signs per protocol Monitor intake and output. (18) Depression: Assessment and Plan: Continue with home medications as directed. Reporting new or worsening symptoms. Qualifiers: Depression Type: other depression Qualified Code(s): F32.89 - Other specified depressive episodes (19) Failure of outpatient treatment: (20) Sinus tachycardia: Assessment and Plan: Cardiac monitoring continuous. Vital signs per protocol Continue IV fluid resuscitation. Electrolyte replacement per protocol. Monitor CBC, CMP, mag daily. (21) History of depression: Assessment and Plan: Continue with home medications as directed. Report any new or worsening symptoms. Plan Sodium Chloride 1,000 mls @ 75 mls/hr IV CONT cardiac monitoring PT/OT consult Albumin 100 mls @ 60 mls/hr IV Q2H Enoxaparin Sodium 30 mg SUBQ Q24H Meropenem 1 gm in Sodium Chloride 50 mls @ 100 mls/hr IV Q12H Buspirone Hcl 5 mg PO TID Citalopram Hydrobromide 20 mg PO BID Loratadine 10 mg PO DAILY Sodium Polystyrene Sulfonate 7.5 gm PO DAILY Pantoprazole Sodium 40 mg PO DAILY Lactobacillus Acidophilus 1 gm PO DAILY Magnesium Hydroxide 30 ml PO DAILY PRN Bisacodyl 10 mg HI DAILY PRN Morphine Sulfate 2 mg IV Q4H PRN Ketorolac Tromethamine 15 mg IVP Q6H PRN Ondansetron Hcl 4 mg INJ Q6H PRN Promethazine Hcl 25 mg in Sodium Chloride 51 mls @ 200 mls/hr IV Q8H PRN acetaminophen 1,000 mg in 100 mls @ 400 mls/hr IV Q6H PRN Meclizine Hcl 25 mg PO Q8H PRN Ativan 0.5 mg IVP every 8 hours as needed for anxiety Continue with IV hydration and electrolyte replacement per protocol as needed. PT/OT eval and treat. Continue with continuous cardiac monitoring. Fall Risk Details Thompson Fall Scale Risk Level: Moderate Fall Risk Current Medications: Current Medications Acetaminophen (Acetaminophen 325 Mg Tablet) 650 mg PO Q8H PRN PRN Reason: MILD PAIN SCALE 1-4 Bisacodyl (Bisacodyl 10 Mg Supp.Rect) 10 mg HI DAILY PRN PRN Reason: Constipation Buspirone HCl (Buspirone Hcl 5 Mg Tablet) 5 mg PO TID [facility] Last Admin: 09/24/24 09:08 Dose: 5 mg Citalopram Hydrobromide (Citalopram Hydrobromide 20 Mg Tablet) 20 mg PO BID [facility] Last Admin: 09/24/24 09:08 Dose: 20 mg Enoxaparin Sodium (Enoxaparin Sodium 30 Mg/0.3 Ml Syringe) 30 mg SUBQ Q24H [facility] Last Admin: 09/23/24 13:08 Dose: 30 mg Sodium Chloride (Sodium Chloride) 1,000 mls @ 100 mls/hr IV CONT [facility] Last Admin: 09/24/24 00:41 Dose: 100 mls/hr Promethazine HCl 25 mg/ Sodium (Chloride) 51 mls @ 200 mls/hr IV Q8H PRN PRN Reason: Nausea And Vomiting Acetaminophen (Acetaminophen 1000 Mg/100 Ml) 1,000 mg in 100 mls @ 400 mls/hr IV Q6H PRN PRN Reason: MILD PAIN SCALE 1-4 Meropenem 1 gm/ Sodium (Chloride) 50 mls @ 100 mls/hr IV Q12H [facility] Last Infusion: 09/24/24 01:11 Dose: Infused Ketorolac Tromethamine (Ketorolac 30 Mg/Ml Inj Vial) 15 mg IVP Q6H PRN PRN Reason: Moderate Pain SCALE 5-7 Stop: 09/27/24 12:59 Last Admin: 09/24/24 05:36 Dose: 15 mg Lactobacillus Acidophilus (L. Acidophilus/L.Bulgaricu 1 Gm Gran.Pack) 1 gm PO DAILY [facility] Last Admin: 09/24/24 09:08 Dose: 1 gm Loratadine (Loratadine 10 Mg Tablet) 10 mg PO DAILY [facility] Last Admin: 09/24/24 09:08 Dose: 10 mg Magnesium (Magnesium Oxide 400 Mg Tablet) 400 mg PO DAILY [facility] Magnesium Hydroxide (Magnesium, Aluminum Hydroxide 30 Ml Oral.Susp) 30 ml PO DAILY PRN PRN Reason: Heartburn Meclizine HCl (Meclizine Hcl 25 Mg Tablet) 25 mg PO Q8H PRN PRN Reason: vertigo Morphine Sulfate (Morphine Sulfate 2 Mg/Ml Cartridge) 2 mg IV Q4H PRN PRN Reason: Severe Pain SCALE 8-10 Ondansetron HCl (Ondansetron Hcl/Pf 4 Mg/2 Ml Vial) 4 mg INJ Q6H PRN PRN Reason: Nausea And Vomiting Last Admin: 09/23/24 01:35 Dose: 4 mg Pantoprazole Sodium (Pantoprazole Sodium 40 Mg Tablet.Dr) 40 mg PO DAILY [facility] Last Admin: 09/24/24 09:08 Dose: 40 mg Sodium Polystyrene Sulfonate (Sodium Polystyrene Sulfonate 15 Gm/60 Ml Oral.Susp) 7.5 gm PO DAILY [facility] Last Admin: 09/24/24 10:01 Dose: Not Given Time Spent With Patient Time: Total time spent is greater than 50% in coordination of care (as documented) at patient's floor/unit and/or counseling patient: Time with patient: greater than 35 minutes
[2024-09-24] MEDS: MAGNESIUM OXIDE 400 MG TABLET PO SCH (10:45)
[2024-09-24] MEDS: LORazepam 2 MG/ML VIAL IVP PRN (16:06)
[2024-09-24] MEDS: BUMETANIDE 1 MG/4 ML VIAL IVP ONE ×2 (16:28→19:22)
[2024-09-24] MEDS ORDERED: BUMETANIDE 1 MG/4 ML VIAL IVP STA (18:51)
[2024-09-24 19:08] LABS: Base Excess ABG -1.8 mmo1/L (-2-2); Oxygen Saturation ABG 95 % (92-100); PCO2 ABG 39 mmHg (35-45); PO2 ABG 77 mmHg (60-100); pH ABG 7.38 (7.35-7.45)
[2024-09-24] MEDS: DILTIAZEM HCL 240 MG PO ONE (19:23)
[2024-09-24] MEDS: LOSARTAN POTASSIUM 50 MG TABLET PO SCH (20:34)
[2024-09-25 04:31] VITALS: RESP 19
[2024-09-25 05:54] LABS: Basophils%(Percent) Auto 0.1 (0.1-0.85); Eosinophils#(Absolute)Auto 0.2 (0.0-0.2); Eosinophils%(Percent) Auto 1.5 % (0.4-2.8); Granulocytes % - Auto 76.7 % (47.8-71.3); Granulocytes#(Absolute)- Auto 9.8 (2.3-6.0); Hematocrit 29.1 % (35.9-46.7); Mean Corpuscular Volume 91.6 fl (81.0-93.7); Monocytes #(Absolute)- Auto 1.3 (1.1-3.1); Monocytes %(Percent)- Auto 10.6 % (3.6-9.8); Platelet Count 311 K/uL (152-353); White Blood Count 12.7 K/uL (4.3-9.3)
[2024-09-25 06:30] LABS: Potassium 4.9 mmol/L (3.6-5.2)
[2024-09-25] MEDS: MAGNESIUM OXIDE 400 MG TABLET PO ONE (10:45)
[2024-09-25 11:54] VITALS: BP 132/60; PULSE 94; TEMP 98.1
--- NOTE | 2024-09-25 12:01 | Discharge Summary ---
DS: Providers Provider Date of admission: 09/22/24 12:27 Primary care physician: Mirtha Eng DO Admitting clinician: Jabari Mcintosh Attending physician on admission: Mirtha Eng Attending physician on discharge: Mirtha Eng Discharging clinician: Benita Painter Anticipated date of discharge: 09/25/24 DS: Diagnosis Discharge Diagnosis (1) UTI (urinary tract infection): Assessment and plan: Urine culture-no growth Completed meropenem IV during hospital stay. Qualifiers: Hematuria presence: without hematuria Urinary tract infection type: site unspecified Qualified Code(s): N39.0 - Urinary tract infection, site not specified (2) Hyponatremia: Assessment and plan: Resolved Plan to repeat CBC, CMP and BNP on Thursday (3) Acute kidney injury superimposed on stage 4 chronic kidney disease: Assessment and plan: Improved with IV hydration IV fluids were stopped due to fluid volume overload on 09/24/2024 This a.m. CMP remained stable. Plan to repeat CBC, CMP and BNP on Thursday (4) Knee pain: Assessment and plan: Continue range of motion and exercise as tolerated. Consider Ortho consult PT/OT to continue at LTC. Qualifiers: Chronicity: acute Laterality: bilateral Qualified Code(s): M25.561 - Pain in right knee; M25.562 - Pain in left knee (5) Dyspnea: Assessment and plan: Resolved. Chest x-ray negative for acute process. Continue home medications as directed. Continue to monitor daily weights. Repeat CBC, CMP, and BNP on Thursday Qualifiers: Dyspnea type: unspecified Qualified Code(s): R06.00 - Dyspnea, unspecified (6) Dizziness: Assessment and plan: Resolved (7) Contusion, hip: Assessment and plan: Continue range of motion and exercise as tolerated. Consider Ortho consult PT/OT to continue at LTC. Qualifiers: Encounter type: initial encounter Laterality: unspecified laterality Qualified Code(s): S70.00XA - Contusion of unspecified hip, initial encounter (8) Urinary incontinence: Assessment and plan: Up with assistance. Urine and bowel training if possible. Qualifiers: Urinary Incontinence type: unspecified incontinence Qualified Code(s): R32 - Unspecified urinary incontinence (9) Full incontinence of feces: Assessment and plan: Up with assistance. Urine and bowel training if possible. (10) Overactive bladder: Assessment and plan: Continue home medications as directed. Up with assistance-urine and bowel training. (11) Osteoarthritis: Assessment and plan: Continue range of motion and exercise as tolerated. Consider Ortho consult PT/OT to continue at LT. Qualifiers: Osteoarthritis location: unspecified site Osteoarthritis type: unspecif ied Qualified Code(s): M19.90 - Unspecified osteoarthritis, unspecified site (12) Anxiety: Assessment and plan: Continue home medications as directed (13) Insomnia: Assessment and plan: Continue home medications as directed Qualifiers: Insomnia type: unspecified Qualified Code(s): G47.00 - Insomnia, unspecified (14) HTN (hypertension): Assessment and plan: Continue home medications as directed. Monitor vital signs per protocol. Monitor labs per protocol-plan for repeat CBC, CMP and BNP on Thursday Daily weights Qualifiers: Hypertension type: primary hypertension Qualified Code(s): I10 - Essential (primary) hypertension (15) Hx of hyperkalemia: Assessment and plan: Resolved (16) Anemia: Assessment and plan: Continue home medications as directed. Continue to monitor labs per protocol. Plan for repeat CBC, CMP, BNP on Thursday Qualifiers: Anemia type: due to chronic kidney disease Chronic kidney disease stage: stage 4 (GFR 15-29) Qualified Code(s): N18.4 - Chronic kidney disease, stage 4 (severe); D63.1 - Anemia in chronic kidney disease (17) Dehydration: Assessment and plan: Improved with IV hydration IV fluids were stopped due to fluid volume overload on 09/24/2024 This a.m. CMP remained stable. Plan to repeat CBC, CMP and BNP on Thursday Continue to encourage Oral fluids to maintain hydration. Daily weights (18) Depression: Assessment and plan: Continue home medications as directed. Report any new or worsening symptoms. Qualifiers: Depression Type: other depression Qualified Code(s): F32.89 - Other specified depressive episodes (19) Failure of outpatient treatment: (20) Sinus tachycardia: Assessment and plan: Improved. Continue home medications as directed. Cardizem CD 120 p.o. daily (21) History of depression: (22) Elevated brain natriuretic peptide (BNP) level: Assessment and plan: Patient was treated for fluid volume overload- IV hydration discontinued, IV diuretics- See MAR Continue with daily weights. Nurse to report any 3 to 5 pound weight gain-contact for further instructions. Continue to monitor vital signs per protocol Continue to monitor labs per protocol Plan for repeat CBC, CMP, BNP on Thursday Cardizem CD1 20 mg p.o. daily Consider cardiology consult should family desire. Continue with home medications as directed. Plan Continue to encourage fluids to maintain hydration. Continue with physical therapy/Occupational Therapy. Consider Ortho eval for continued bilateral knee pain with osteoarthritis. Continue to monitor vital signs per protocol. Continue to monitor labs per protocol Plan for repeat CBC, CMP, BNP on Thursday Beginning Cardizem CD 120 mg p.o. daily Consider cardiology consult should family desire. Continue with home medications as directed. DS: Summary Hospital Course Hospital Course: 84-year-old female presented to ER from the LT with complaint of bilateral knee pain, cough, weakness and has been evaluated by physical exam, CBC, CMP, urinalysis, plain film chest x-ray, bilateral knee x-rays, EKG, And swabs for flu and COVID results as noted in charting. Patient swabs have returned negative for flu and COVID, patient's lab work reveals patient to be hyponatremic, hypoalbuminemic, leukocytosis, urinary tract infection which has caused the patient to fail outpatient therapy, and acute on chronic kidney injury. Patient was admitted to the [facility] [place] to observation status for IV antibiotic therapy, electrolyte replacement, and pain control of her knee pain. On the afternoon of her third day of her hospital stay she exhibited symptoms of fluid volume overload with pulmonary effusions and rate variations noted on EKG. This was treated IV diuretics and Cardizem and her symptoms improved. Dyspnea resolved. Today patient is resting in semi-Fowlers position. She is progressing back to her baseline. She denies any complaints or concerns at this time. She does states she is "ready to go home". Her Troponin is trending down and BNP continues to be elevated, however, due to her sensitive kidney function we are treating this cautiously. She did receive IV diuretics here. However, on discharge plan to continue with monitoring of daily weights. Will have nurses report any 3 to 5 pound weight gain and contact MD for further orders. The patient reports she is feeling "much better and ready to go home". We will discharge her back to LTC. Status at Discharge Overall status at discharge: patient is progressing back to baseline Time Spent with Patient Time attestation: Total time spent providing and/or coordinating discharge services: Exam Constitutional: abnormal general appearance (chronically ill) and (frail appearing), no apparent distress, average body habitus, limitations noted (physical limitations) (Dementia) and alert Vital Signs - 24 hr 09/24/24 12:00 09/24/24 16:00 09/24/24 18:00 Temperature 98.0 F 97.4 F L Pulse Rate 133 H Pulse Rate [Left] 105 H 103 H Respiratory Rate 21 18 Blood Pressure 212/110 Blood Pressure [Le ft Radial Artery] 178/83 189/91 Pulse Oximetry 97 96 Oxygen Delivery Me thod Room Air Room Air Oxygen Flow Rate Fraction of Inspir ed Oxygen 09/24/24 18:22 09/24/24 19:21 09/24/24 20:00 Temperature 98 F Pulse Rate Pulse Rate [Left] 115 H Respiratory Rate 23 Blood Pressure 155/75 Blood Pressure [Le ft Radial Artery] 187/99 Pulse Oximetry 95 98 Oxygen Delivery Me thod Nasal Cannula Oxygen Flow Rate 2 Fraction of Inspir ed Oxygen 28 09/24/24 20:00 09/24/24 20:30 09/24/24 20:34 Temperature Pulse Rate 108 H Pulse Rate [Left] Respiratory Rate Blood Pressure 158/86 158/86 187/99 Blood Pressure [Le ft Radial Artery] Pulse Oximetry Oxygen Delivery Me thod Oxygen Flow Rate Fraction of Inspir ed Oxygen 09/25/24 00:00 09/25/24 04:00 09/25/24 07:35 Temperature 98.4 F 98.0 F 98.2 F Pulse Rate Pulse Rate [Left] 98 H 95 H 100 H Respiratory Rate 20 19 19 Blood Pressure Blood Pressure [Le ft Radial Artery] 145/77 154/76 146/72 Pulse Oximetry 96 94 L 93 L Oxygen Delivery Me thod Nasal Cannula Room Air Room Air Oxygen Flow Rate 2 Fraction of Inspir ed Oxygen 09/25/24 11:53 Temperature 98.1 F Pulse Rate Pulse Rate [Left] 94 H Respiratory Rate 19 Blood Pressure Blood Pressure [Le ft Radial Artery] 132/60 Pulse Oximetry 97 Oxygen Delivery Me thod Room Air Oxygen Flow Rate Fraction of Inspir ed Oxygen HENMT: normocephalic, head/scalp atraumatic, hearing grossly abnormal, exte rnal ears normal, EACs normal, TMs abnormal, nasal mucous membranes normal, external nose normal, oral mucous membranes normal, oropharynx normal and gingiva normal Eyes: PERRL, EOMs intact bilaterally, conjunctivae normal, no scleral icterus, no papilledema, normal visual [place] by confrontation, alignment normal, periorbital findings normal and no nystagmus Neck/C-Spine: visual inspection normal, trachea midline, cervical spine nontender, abnormal cervical ROM noted, supple, no meningeal signs, thyroid normal and no carotid bruits Lymph: no lymphadenopathy noted and no lymphedema noted Chest: inspection of chest normal, palpation of chest normal, inspection of breast(s) abnormal and palpation of breast(s) abnormal Respiratory: breath sounds equal bilaterally, normal respiratory effort, clear to auscultation bilaterally, no wheezes, no rales, no retractions and no use of accessory muscles Nonproductive cough Cardiovascular: heart rate abnormal (tachycardic), regular rhythm noted, no gallop, no rub, no murmur, no JVD, no clicks, peripheral pulses as noted:, no bruits noted and no additional abnormal heart sounds Gastrointestinal: abdomen normal to inspection, abdomen soft to palpation, nontender to palpation, nondistended, normoactive bowel sounds, hepatosplenomegaly noted, no masses, no pulsatile mass, no ascites and normal rectal exam (deferred) Genitourinary: no CVA tenderness, bladder normal to palpation, vaginal abnormality noted (deferred), cervical abnormality noted, bimanual exam abnormal and inguinal lymphadenopathy noted Back/Pelvis: spine normal to inspection, no thoracic spine tenderness, no lumbar spine tenderness, thoracic spine ROM abnormal, lumbar spine ROM abnormal, no paraspinal muscle tenderness noted and straight leg raise abnormal Extremities: normal to inspection, normal to palpation, tenderness noted, abnormal ROM noted, joint enlargement noted and no deformity Patient has bilateral knee pain and joint edema that is chronic in nature. 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 intact, no movement abnormality noted, no focal motor deficit noted, sensory deficit noted, gait abnormality noted (shuffling) and (wide-based), speech abnormality noted, coordination normal, no pronator drift noted, no fasciculations noted and GCS normal Psychiatry: Mental Status Exam documented within this Exam's Psych section mental status grossly normal, orientation abnormal (Patient is oriented to her normal state.), thought process abnormality noted, cooperative, affect abnormality noted (depressed), psychomotor activity normal and memory abnormal Skin: skin color abnormal Reports (pale), no rash, no lesions, ecchymosis noted (Scattered bilateral upper extremities), no wounds, no lacerations, skin turgor abnormal Reports (tenting), no jaundice, no petechiae, no mottling, nails abnormality noted and no alopecia DS: Data Data Completed and Pending Completed studies during hospitalization: EKG performed 09/25/2024 at 843 Sinus tachycardia rate 100 Rate variations noted compared to previous EKGs Labs on day of discharge: Labs from last 24 hours 09/25/24 09/25/24 09/25/24 11:00 10:00 04:38 WBC 12.7 H RBC 3.2 L Hgb 9.5 L Hct 29.1 L MCV 91.6 MCH 30.0 MCHC 32.8 L RDW 12.6 Plt Count 311 MPV 7.2 Gran % 76.7 H Lymph % (Auto) 11.1 L [place] % (Auto) 10.6 H Eos % (Auto) 1.5 Baso % (Auto) 0.1 Lymph # (Auto) 1.4 [place] # (Auto) 1.3 Eos # (Auto) 0.2 Baso # (Auto) 0.0 Absolute Gran (auto) 9.8 H ABG pH ABG pCO2 ABG pO2 ABG HCO3 ABG Total CO2 ABG O2 Saturation ABG Base Excess A-a O2 Gradient Respiratory Index FiO2 Sodium 137 Potassium 4.9 Chloride 103.0 Carbon Dioxide 26 Anion Gap 8.0 BUN 20 H Creatinine 1.7 H Estimated GFR 29.4 Glucose 107 Calcium 8.7 Magnesium 1.7 L Total Bilirubin 0.34 AST 19 ALT 16 L Alkaline Phosphatase 98 Troponin I High Sens 166.60 H* 291.10 H* B-Natriuretic Peptide 938.0 H 828.0 H Total Protein 6.3 L Albumin 2.9 L 09/24/24 09/24/24 09/24/24 19:00 19:00 17:40 WBC RBC Hgb Hct MCV MCH MCHC RDW Plt Count MPV Gran % Lymph % (Auto) [place] % (Auto) Eos % (Auto) Baso % (Auto) Lymph # (Auto) [place] # (Auto) Eos # (Auto) Baso # (Auto) Absolute Gran (auto) ABG pH 7.38 ABG pCO2 39 ABG pO2 151 77 ABG HCO3 23.1 ABG Total CO2 24.3 ABG O2 Saturation 95 ABG Base Excess -1.8 A-a O2 Gradient 74 Respiratory Index 1.0 FiO2 28.0 Sodium Potassium Chloride Carbon Dioxide Anion Gap BUN Creatinine Estimated GFR Glucose Calcium Magnesium Total Bilirubin AST ALT Alkaline Phosphatase Troponin I High Sens 33.20 B-Natriuretic Peptide 524.0 H Total Protein Albumin Imaging Chest x-ray: Attestation: I have reviewed the pertinent imaging results. Radiologist's impression: EXAM: XR CHEST 2V HISTORY: elevated BNPelevated BNP; COMPARISON: 09/24/2024 FINDINGS: The cardiomediastinal silhouette is stable. Chronic appearing interstitial changes in the lungs. No acute airspace disease. No pneumothorax or effusion. No acute osseous abnormality. IMPRESSION: No acute cardiopulmonary disease. THIS IS AN ELECTRONICALLY VERIFIED FINAL REPORT 09/25/2024 8:58 AM - Electronically signed by Fuentes Sparrow MD Discharge Plan Discharge Disposition: er LT Condition: Stable Discharge Medications: New diltiazem HCl [Cardizem CD] 120 mg capsule,extended release 24hr 120 mg PO DAILY 30 Days Qty: 30 0RF Continued olmesartan 20 mg tablet 40 mg PO BEDTIME Patient Comments: TAKE ONE TABLET BY MOUTH DAILY citalopram 20 mg tablet 20 mg PO BID Patient Comments: TAKE ONE TABLET BY MOUTH TWICE DAILY SPS (with sorbitol) 15-20 gram/60 mL suspension 30 ml PO DAILY Patient Comments: TAKE 30 ML BY MOUTH DAILY OR DIRECTED buspirone 5 mg tablet 5 mg PO TID Patient Comments: TAKE ONE TABLET BY MOUTH THREE TIMES DAILY meclizine 25 mg tablet 25 mg PO Q8H PRN (Reason: vertigo) Patient Comments: TAKE ONE TABLET BY MOUTH THREE TIMES A DAY NEEDED loratadine 10 mg tablet 10 mg PO DAILY Patient Comments: TAKE ONE TABLET BY MOUTH ONCE DAILY loperamide 2 mg tablet 2 mg PO Q12H PRN (Reason: loose stool) Rx Instructions: administer after each loose stool until symptoms controlled; do not exceed 8 mg per 24 hrs acetaminophen 650 mg tablet extended release 650 mg PO Q8H PRN (Reason: pain) magnesium 200 mg tablet 200 mg PO DAILY cholecalciferol (vitamin D3) 125 mcg (5,000 unit) tablet 125 mcg PO DAILY Discharge Orders: Discharge Order (Routine); Ordered 09/25/24 Ordered By: Benita Painter Activity: as per physical therapy, increase activity as tolerated and resume usual activities as tolerated Diet: advance to your usual diet Hospital Course: 84-year-old female presented to ER from the LTC with complaint of bilateral knee pain, cough, weakness and has been evaluated by physical exam, CBC, CMP, urinalysis, plain film chest x-ray, bilateral knee x-rays, EKG, And swabs for flu and COVID results as noted in charting. Patient swabs have returned negative for flu and COVID, patient's lab work reveals patient to be hyponatremic, hypoalbuminemic, leukocytosis, urinary tract infection which has caused the patient to fail outpatient therapy, and acute on chronic kidney injury. Patient was admitted to the [facility] [place] to observation status for IV antibiotic therapy, electrolyte replacement, and pain control of her knee pain. On the afternoon of her third day of her hospital stay she exhibited symptoms of fluid volume overload with pulmonary effusions and rate variations noted on EKG. This was treated IV diuretics and Cardizem and her symptoms improved. Dyspnea resolved. Today patient is resting in semi-Fowlers position. She is progressing back to her baseline. She denies any complaints or concerns at this time. She does states she is "ready to go home". Her Troponin is trending down and BNP continues to be elevated, however, due to her sensitive kidney function we are treating this cautiously. She did receive IV diuretics here. However, on discharge plan to continue with monitoring of daily weights. Will have nurses report any 3 to 5 pound weight gain and contact MD for further orders. The patient reports she is feeling "much better and ready to go home". We will discharge her back to LT. Interventions: Discharge Assessment Last Done: 09/25/24 12:50 MED/SURG & ICU Observation Charge Sheet Last Done: 09/25/24 12:52 Print Language: Turkish Patient Instructions: Anxiety (ED) Activity Restrictions/Additional Instructions: Daily weight-nurse to contact MD for further instructions with any 3 to 5 pound weight gain. Continue to encourage fluids to maintain hydration. Continue with physical therapy/Occupational Therapy. Consider Ortho eval for continued bilateral knee pain with osteoarthritis. Continue to monitor vital signs per protocol. Continue to monitor labs per protocol Plan for repeat CBC, CMP, BNP on Thursday Beginning Cardizem CD 120 mg p.o. daily Consider cardiology consult should family desire. Continue with home medications as directed. Forms: Portal/Health Info Access Inst Follow-Ups: Mirtha Eng DO [Primary Care Provider] - Discharge Date/Time: 09/25/24 12:52
== END 2024-09-25 12:52 ==
LOC: MS 09:22 → ED 09:22 → MS 13:30
PROVIDERS: ADMIT Family Medicine; ATTEND Family Medicine